=== PATIENT | female | born 1950 | race Caucasian/White ===

== ENCOUNTER 2016-05-23 22:47 | Inpatient (IN) | payer MEDICARE, MEDICAID ==
[~2016-05-23] VITALS: Ht 162.6 cm; Wt 75.0 kg
[~2016-05-23 22:47] MED LIST: GABA300C PO; HYDR25TA PO; LEVO50TA11 PO; OMEP-122 PO; TRAZ-170 PO; VILA20TA PO
--- OUTSIDE RECORDS SUMMARY | 2016-05-23 22:50 | XMS REPORT | Continuity of Care Document ---
Author Author [facility] Organization [facility] Address Unknown Phone Unavailable Care Team Providers Care Hand Stamper Name Role Phone ALLAN BARTHOLOMEW DO Primary Care Physician [phone] Insurance Providers Guarantor Priscilla Henderson Address [address] [place] [address] Email [email or web address] Payer [facility] Community Plan Policy Number [id number] Subscriber's Name Priscilla Henderson Relationship 18 Self Effective Date 16 Expiration Date 16 Payer Medicare Policy Number [id number] Subscriber's Name Priscilla Henderson Relationship 18 Self Chief Complaint and Reason for Visit Chief Complaint Cough,Fever,Flu,URI Reason for Visit Coronavirus infection Problems Active Problems Medical Problem Onset Date Status Abdominal pain Unknown Acute Abrasion of left hand Unknown Acute Abrasion of right hand Unknown Acute Acute urinary retention Unknown Acute Acute urinary retention Unknown Acute Acute urinary retention Unknown Acute Acute urinary retention Unknown Acute Atypical chest pain Unknown Acute Cervical disc disease Unknown Acute Cervical strain Unknown Acute Chest pain Unknown Acute Contusion of left hip Unknown Acute Contusion of left knee Unknown Acute Fall from ground level Unknown Acute Hand sprain Unknown Acute Headache Unknown Acute History of renal anomaly Unknown Acute Insomnia Unknown Acute Insomnia Unknown Acute Leg cramps Unknown Acute Muscle spasm Unknown Acute Nasal contusion Unknown Acute Pectoralis muscle strain Unknown Acute Past Problems Medical Problem Onset Date Coronavirus infection Unknown Knee pain, acute Unknown Medications Current Home Medications Medication Dose Units Route Directions Days Qty Instructions Start Date Gabapentin (Neurontin) 300 Mg Capsule 300 Mg Oral Every Morning 09/21/13 Gabapentin (Neurontin) 300 Mg Capsule 600 Mg Oral Bedtime Hydrochlorothiazide 25 Mg Tablet 25 Mg Oral Daily 09/21/13 Levothyroxine Sodium 50 Mcg Tablet 50 Mcg Oral Before Breakfast 04/06/15 Omeprazole 20 Mg Tablet.dr Unknown Dose Oral Before Breakfast Take 1 tablet, by mouth, one time a day with breakfast. 03/29/16 Trazodone Hcl 50 Mg Tablet 50-100 Mg Oral Bedtime 06/24/14 Vilazodone Hydrochloride (Viibryd) 20 Mg Tablet 20 Mg Oral Daily 04/06/15 Past Home Medications Medication Directions Ordered Status Ascorbic Acid (Vitamin C) 1,000 Mg Tablet, 1000 Mg Oral Daily 06/24/14 Discontinued Cholecalciferol (Vitamin D3) (Vitamin D-3) 2,000 Unit Capsule, 2000 Unit Oral Daily 01/03/14 Discontinued Cyclobenzaprine Hcl 10 Mg Tablet, 10 Mg Oral Three Times A Day as needed for Muscle Spasm 04/06/15 Discontinued Ibuprofen 600 Mg Tablet, 1 Tab Oral Every 8 Hours Prn as needed for Pain 08/26 Discontinued Lisinopril 10 Mg Tablet, 10 Mg Oral Daily 06/24/14 Discontinued Multivitamin (Multi Vitamin Daily) 1 Each Tablet, 1 Tab Oral Daily 01/03/14 Discontinued None , 10/23/09 Discontinued Tramadol Hcl 50 Mg Tablet, 1-2 Tab Oral Q6h/0300,0900,1500,2100 04/06/15 Discontinued Vitamin E Acetate (Vitamin E) 1,000 Unit Capsule, 1000 Unit Oral Daily Discontinued Social History Social History Problem Response Recorded Date/Time Onset Date Status Hx Substance Use N PT DENIES 03/29/2016 11:38pm Not Applicable Not Applicable Hx Alcohol Use N PT DENIES 03/29/2016 11:38pm Not Applicable Not Applicable Tobacco Usage none 09/22/2013 11:45pm Not Applicable Not Applicable Query Response Start Date Stop Date Smoking Status Never smoker Hospital Discharge Instructions No hospital discharge instructions. Plan of Care Discharge Date 03/30/16 1:30am Disposition 01 DISCHARGED HOME, SELF-CARE Condition at Discharge Stable Instructions/Education Provided Cold Symptoms (ED) Prescriptions See Medication Section Referrals ALLAN BRATHOLOMEW DO Order Date: 1 Week Address: [address] [place] [phone] Note: DEMETRIUS OSHEA APRN Address: [address] [place] [phone] Note: Additional Instructions/Education You have a cold. Drink plenty of fluids. Use Nyquil and dayquil for your symptoms. If you really cannot take ibuprofen or tylenol, take benadryl to help with your symptoms. Follow up with your doctor. Care Plan and Goals Physician Care Plan Problem: URI Goal: Follow up with primary care provider Instructions: Take medications and follow care plan as discussed/written Functional Status No functional status results. Allergies, Adverse Reactions, Alerts Allergen Type Severity Reaction Status Last Updated Sulfa (Sulfonamide Antibiotics) Allergy Unknown Active 01/18/16 Iodine Adverse Reaction Unknown Active 01/18/16 Fluoxetine Allergy Unknown Active 01/18/16 Immunizations Query Response on File Recorded Date/Time Hx Influenza Vaccination No 07/18/14 4:35pm Hx Pneumococcal Vaccination No 07/18/14 4:35pm Hx Tetanus, Diptheria, Pertussis NO SKIN DISRUPTIONS 07/18/14 4:35pm Hx Influenza Vaccination No 07/18/14 4:35pm Hx Tetanus Diptheria No 07/18/14 4:35pm Hx Tetanus, Diptheria, Pertussis NO SKIN DISRUPTIONS 07/18/14 4:35pm Hx Tetanus Toxoid Vaccination No 09/11/12 2:01pm DTaP Vaccine History NO 03/29/16 11:38pm Influenza Vaccine Hx NA 03/29/16 11:38pm Tetanus Diptheria Vaccine History NO 03/29/16 11:38pm Tdap Vaccine Hx 201404/06/15 3:46pm Vital Signs Acute Vital Signs Vital Response Date/Time Temperature (Fahrenheit) 99.9 deg F (96.8 - 99.1) 03/30/2016 1:30am Temperature (Calculated Celsius) 37.06200 degrees C (36.0 - 37.3) 03/30/2016 1:30am Pulse Rate (adult) 84 bpm (60 - 100) 03/30/2016 1:30am Respiratory Rate 18 breaths/min (10 - 20) 03/30/2016 1:30am O2 Sat by Pulse Oximetry 93 % (90 - 100) 03/30/2016 1:30am Blood Pressure 119/82 mm Hg 03/30/2016 1:30am Height (Feet) 5 feet 03/29/2016 11:25pm Height (Inches) 4.00 inches 03/29/2016 11:25pm Weight (Kilograms) 77.600 kg 03/29/2016 11:25pm Body Mass Index (BMI) 29.0 03/29/2016 11:25pm Results Laboratory Results Test Name Result Units Flags Reference Collection Date/Time Result Date/ Time Comments Adenovirus (PCR) NEGATIVE NEGATIVE 03/29/2016 11:45pm 03/30/2016 1: 01am Coronavirus Type 229E (PCR) DETECTED A NEGATIVE 03/29/2016 11:45pm 1:01am Coronavirus Type HKU1 (PCR) NEGATIVE NEGATIVE 03/29/2016 11:45pm 1:01am Coronavirus Type NL63 (PCR) NEGATIVE NEGATIVE 03/29/2016 11:45pm 1:01am Coronavirus Type OC43 (PCR) NEGATIVE NEGATIVE 03/29/2016 11:45pm 1:01am Human Metapneumovirus (PCR) NEGATIVE NEGATIVE 03/29/2016 11:45pm 1:01am Enterovirus/Rhinovirus (PCR) NEGATIVE NEGATIVE 03/29/2016 11:45pm 1:01am Influenza Virus Type A (PCR) NEGATIVE NEGATIVE 03/29/2016 11:45pm 1:01am Influenza Virus Type B (PCR) NEGATIVE NEGATIVE 03/29/2016 11:45pm 1:01am Parainfluenza Type 1 (PCR) NEGATIVE NEGATIVE 03/29/2016 11:45pm 03/30 1:01am Parainfluenza Type 2 (PCR) NEGATIVE NEGATIVE 03/29/2016 11:45pm 03/30 1:01am Parainfluenza Type 3 (PCR) NEGATIVE NEGATIVE 03/29/2016 11:45pm 03/30 1:01am Parainfluenza Type 4 (PCR) NEGATIVE NEGATIVE 03/29/2016 11:45pm 03/30 1:01am Respiratory Syncytial Virus (PCR) NEGATIVE NEGATIVE 03/29/2016 11: 45pm 03/30/2016 1:01am Bordetella parapertussis DNA (PCR) NEGATIVE NEGATIVE 03/29/2016 11: 45pm 03/30/2016 1:01am Chlamydia pneumoniae DNA (PCR) NEGATIVE NEGATIVE 03/29/2016 11:45pm 03/30/2016 1:01am Mycoplasma pneumoniae (PCR) NEGATIVE NEGATIVE 03/29/2016 11:45pm 1:01am Procedures No known history of procedures. Encounters Encounter Location Arrival/Admit Date Discharge/Depart Date Attending Provider Departed Emergency Room [facility] 03/29/16 10:47pm 03/30/16 1: 30am GUSTAVO ROWAN DO Registered Clinic [facility] 03/27/16 2:57pm DEMETRIUS OSHEA APRN Departed Emergency Room [facility] 01/18/16 3:01pm 01/18/16 3: 53pm CHAI CHENG APRN Recent Diagnosis
--- OUTSIDE RECORDS SUMMARY | 2016-05-23 22:51 | XMS REPORT | Continuity of Care Document ---
Author Author [facility] Organization [facility] Address Unknown Phone Unavailable Support Name Relationship Address Phone FRANCISCO TERAN MD Caregiver [address] [place] [address] [place] [phone] MARLENY MARTÍNEZ Next Of Kin [address] [place] [address] Insurance Providers Payer Name Policy Number Subscriber Name Relationship Self Pay Priscilla Henderson 18 Self Advance Directives Directive Response Recorded Date/Time Advanced Directives Type None 09/21/13 2:18pm Problems Medical Problems Problem Onset Date Status Acute urinary retention Unknown Active Headache Unknown Active Acute urinary retention Unknown Active Acute urinary retention Unknown Active History of renal anomaly Unknown Active Medications Medication Dose Route Sig Days/Qty Instructions Order Date Discontinued Date Status [None] 10/23/09 09/11/12 Discontinued Oxycodone Hcl/Acetaminophen 1 Tab PO 09/11/12 Active Hydrochlorothiazide 1 Tab PO DAILY 09/21/13 Active Gabapentin 1 Tab PO AM 09/21/13 Active Gabapentin 2 Tab PO BEDTIME 09/21/13 Active Fluoxetine HCl 2 Cap PO DAILY 09/21/13 Active Clonazepam 0.5 Tab PO TWICE A DAY 09/21/13 Active Tamsulosin HCl 1 Cap PO DAILY 10 Qty 09/21/13 Active Phenazopyridine HCl 1 Tab PO THREE TIMES A DAY 15 Qty Take 1 tab, by mouth , 3 times a day AFTER meals. 09/21/13 Active Social History Social History Problem Response Recorded Date/Time Smoking Status Never smoker 09/21/2013 2:18pm Hx Substance Use Y METH-CLEAN FOR 10 MONTHS 09/21/2013 2:18pm Hx Alcohol Use No 09/21/2013 2:18pm Query Response Start Date Stop Date Smoking Status Unknown if ever smoked Hospital Discharge Instructions No hospital discharge instructions. Plan of Care No plan of care. Functional Status Query Response Date Recorded Physical Hygiene Self September 21, 2013 2:18pm Disabilities None September 21, 2013 2:18pm Devices Used None September 21, 2013 2:18pm Dressing Self September 21, 2013 2:18pm Ambulation Self September 21, 2013 2:18pm Diet Self September 21, 2013 2:18pm Mental Status Alert September 21, 2013 6:05pm Disabilities None September 21, 2013 2:18pm Devices Used None September 21, 2013 2:18pm Physical Hygiene Self September 21, 2013 2:18pm Dressing Self September 21, 2013 2:18pm Ambulation Self September 21, 2013 2:18pm Diet Self September 21, 2013 2:18pm Allergies, Adverse Reactions, Alerts Allergen Type Severity Reaction Status Last Updated Sulfa(Sulfonamide Antibiotics) Allergy Unknown Active 11/08/11 Iodine Adverse Reaction Unknown Active 11/08/11 Immunizations Name Given Type Hx Influenza Vaccination No Historical Hx Pneumococcal Vaccination No Historical Hx Tetanus, Diptheria, Pertussis No Historical Hx Influenza Vaccination No Historical Hx Tetanus Diptheria No Historical Hx Tetanus, Diptheria, Pertussis No Historical Hx Tetanus Toxoid Vaccination No Historical Vital Signs Acute Vital Signs Vital Response Date/Time Temperature (Fahrenheit) 96.2 deg F (96.8 - 99.1) Temperature (Calculated Celsius) 35.34504 degrees C (36.0 - 37.3) Pulse Rate (adult) 64 bpm (60 - 100) Respiratory Rate 20 breaths/min (10 - 20) O2 Sat by Pulse Oximetry 96 % (90 - 100) Blood Pressure 159/89 mm Hg Height 5 ft 4 in Weight 145 lb Body Mass Index 24.0 kg/m^2 Results Test Source Date Result Interp. Ref. Range Comments Alanine Aminotransferase (ALT/SGPT) September 21, 2013 2:15pm 65 U/L H 9- 52 Albumin September 21, 2013 2:15pm 4.4 G/DL N 3.5-5.0 Albumin/Globulin Ratio September 21, 2013 2:15pm 1.5 RATIO N 1.1-2.2 Alkaline Phosphatase September 21, 2013 2:15pm 94 U/L N 38-126 Amylase Level November 08, 2011 9:55pm 110 U/L N 30-110 Anion Gap September 21, 2013 2:15pm 13 MEQ/L N 5-15 Aspartate Amino Transf (AST/SGOT) September 21, 2013 2:15pm 44 U/L H 14-36 BUN/Creatinine Ratio September 21, 2013 2:15pm 27 RATIO H 6-26 Band Neutrophils # November 08, 2011 9:55pm 2.4 T/MM3 - Band Neutrophils % November 08, 2011 9:55pm 27.0 % H 0-6 Basophils # (Auto) September 21, 2013 2:15pm 0.0 T/MM3 N 0-0.2 Basophils (%) (Auto) September 21, 2013 2:15pm 0.4 % N 0-2 Blood Urea Nitrogen September 21, 2013 2:15pm 27.0 MG/DL H 7-17 Calcium Level September 21, 2013 2:15pm 10.0 MG/DL N 8.4-10.2 Calculated Osmolality September 21, 2013 2:15pm 272 MOSM/KG N 261-280 Carbon Dioxide Level September 21, 2013 2:15pm 23 MEQ/L N 22-30 Chloride Level September 21, 2013 2:15pm 103 MEQ/L N 98-107 Creatinine September 21, 2013 2:15pm 1.0 MG/DL N 0.7-1.2 Eosinophils # (Auto) September 21, 2013 2:15pm 0.2 T/MM3 N 0-0.5 Eosinophils # (Manual) November 08, 2011 9:55pm 0.1 T/MM3 N 0-0.5 Eosinophils % (Manual) November 08, 2011 9:55pm 1.0 % N 0-4 Eosinophils (%) (Auto) September 21, 2013 2:15pm 2.8 % N 0-4 Globulin September 21, 2013 2:15pm 2.9 G/DL N 2.4-3.6 Glucose Level September 21, 2013 2:15pm 86 MG/DL N 65-110 Hematocrit September 21, 2013 2:15pm 40.7 % N 36-46 Hemoglobin September 21, 2013 2:15pm 14.0 GM/DL N 12-16 Lipase November 08, 2011 9:55pm 45 U/L N 23-300 Lymphocytes # (Auto) September 21, 2013 2:15pm 2.6 T/MM3 N 1-4.8 Lymphocytes # (Manual) November 08, 2011 9:55pm 0.8 T/MM3 L 1-4.8 Lymphocytes % (Manual) November 08, 2011 9:55pm 9.0 % L 23-45 Lymphocytes (%) (Auto) September 21, 2013 2:15pm 36.2 % N 23-45 Mean Corpuscular Hemoglobin September 21, 2013 2:15pm 30.8 UUG N 26-34 Mean Corpuscular Hemoglobin Concent September 21, 2013 2:15pm 34.4 GM/DL N 31-37 Mean Corpuscular Volume September 21, 2013 2:15pm 89.6 UM3 N 80-100 Mean Platelet Volume September 21, 2013 2:15pm 11.2 UM3 N 9.4-12.4 Monocytes # (Auto) September 21, 2013 2:15pm 0.9 T/MM3 H 0-0.8 Monocytes # (Manual) November 08, 2011 9:55pm 0.6 T/MM3 N 0-0.8 Monocytes % (Manual) November 08, 2011 9:55pm 7.0 % N 0-9.0 Monocytes (%) (Auto) September 21, 2013 2:15pm 12.6 % H 0-9.0 Neutrophils # (Auto) September 21, 2013 2:15pm 3.5 T/MM3 N 1.8-7.7 Neutrophils # (Manual) November 08, 2011 9:55pm 5.0 T/MM3 N 1.8-7.7 Neutrophils % (Manual) November 08, 2011 9:55pm 56.0 % N 33-66 Neutrophils (%) (Auto) September 21, 2013 2:15pm 47.9 % N 33-66 Platelet Count September 21, 2013 2:15pm 188 T/MM3 N 130-400 Potassium Level September 21, 2013 2:15pm 3.9 MEQ/L N 3.6-5 RDW Standard Deviation September 21, 2013 2:15pm 39.3 FL N 36.9-50.2 Red Blood Count September 21, 2013 2:15pm 4.54 M/MM3 N 4.00-5.20 Sodium Level September 21, 2013 2:15pm 139 MEQ/L N 134-144 Total Bilirubin September 21, 2013 2:15pm 0.50 MG/DL N 0.20-1.30 Total Protein September 21, 2013 2:15pm 7.3 G/DL N 6.3-8.2 Troponin I September 21, 2013 2:15pm < 0.012 ng/ml 0-0.12 Urine Bilirubin September 21, 2013 2:40pm Negative - Has specimen been collected/obtained? Y Urine Blood September 21, 2013 2:40pm Negative - Has specimen been collected/obtained? Y Urine Collection Type September 21, 2013 2:40pm Straight cath - Has specimen been collected/obtained? Y Urine Color September 21, 2013 2:40pm Yellow - Has specimen been collected/obtained? Y Urine Culture Indicated November 08, 2011 11:08pm Cult reflexed &setup - Has specimen been collected/obtained? Y Urine Glucose (UA) September 21, 2013 2:40pm Negative - Has specimen been collected/obtained? Y Urine Ketones September 21, 2013 2:40pm Negative - Has specimen been collected/obtained? Y Urine Leukocyte Esterase September 21, 2013 2:40pm Negative - Has specimen been collected/obtained? Y Urine Nitrite September 21, 2013 2:40pm Negative - Has specimen been collected/obtained? Y Urine Protein September 21, 2013 2:40pm Negative - Has specimen been collected/obtained? Y Urine RBC November 08, 2011 11:08pm 0-1 /HPF - Has specimen been collected/obtained? Y Urine Specific [place] September 21, 2013 2:40pm <=1.005 L - Has specimen been collected/obtained? Y Urine Squamous Epithelial Cells November 08, 2011 11:08pm Few - Has specimen been collected/obtained? Y Urine Turbidity September 21, 2013 2:40pm Clear - Has specimen been collected/obtained? Y Urine Urobilinogen September 21, 2013 2:40pm 0.2 EU/DL - Has specimen been collected/obtained? Y Urine WBC November 08, 2011 11:08pm 1-3 /HPF - Has specimen been collected/obtained? Y Urine pH September 21, 2013 2:40pm 6.0 - Has specimen been collected/ obtained? Y White Blood Count September 21, 2013 2:15pm 7.2 T/MM3 N 4.5-11.0 Chemistry Specimen Hemolysis September 21, 2013 2:15pm < 15 0-25 0-25: No Hemolysis.26-70: Slight Hemolysis - can falsely elevate K and Urine Protein. 71-285: Moderate Hemolysis - can falsely elevate K, Troponin I, CA 19-9, PTH, CSF GLucose, and Urine Protein, and can falsely decrease Phenytoin. 286-999: Gross Hemolysis - can falsely elevate K, Troponin I, CA 19-9, PTH, CSF Glucose, and Urine Protine, and can falsely decrease Phenytoin. Recommend specimen recollection. Urinalysis Comment September 21, 2013 2:40pm Microscopic not ind. - Has specimen been collected/obtained? Y Lab Scanned Report September 21, 2013 4:47pm REFERENCE LAB [id number] - Turbidity September 21, 2013 2:15pm < 20 0-20 Glomerular Filtration Rate Calc September 21, 2013 2:15pm 56 - Immature Granulocyte # (Auto) September 21, 2013 2:15pm 0.01 T/MM3 N 0.00- 0.03 Immature Granulocyte % (Auto) September 21, 2013 2:15pm 0.1 % N 0.0-0.5 Icterus Index September 21, 2013 2:15pm < 2 0-7 Blood Culture Blood September 11, 2012 2:15pm NO GROWTH AFTER 5 DAYS Urine Culture Urine, Clean Catch Voided November 08, 2011 11:24pm Gram Positive Colin Name: PRISCILLA HENDERSON Unit #: [id number] : 1950 Sex: F Loc / Svc: ED DOS: 09/21/13 Signed Report #: [id number] DIAGNOSTIC IMAGING REPORT TYPE OF EXAM: CT CERVICAL SPINE W/O CONTRAST Dictated By: PA ALMONTE MD INDICATION: ITS.REASON: fall, neck pain CT CERVICAL SPINE W/O CONTRAST: Comparison: Cervical spine radiographs dated April 29, 2013 Technique: Axial CT images through the cervical spine were performed without contrast. Coronal and sagittal reformatted images were also obtained. FINDINGS: The alignment of the cervical spine is stable with anterolisthesis of C4 on C5 and reversal of the normal cervical lordosis. Severe multilevel degenerative changes are present with varying degrees of central canal and neural foraminal stenosis. Severe right- sided neural foraminal stenosis at C3-C4, C4-C5 and bilaterally at C5-C6. Also severe left neural foraminal stenosis at C6-C7. There is no evidence of acute fracture or subluxation of the cervical spine. The atlantoaxial articulation, dens, and upper cervical spine demonstrate no subluxation. The paraspinal soft tissues and spinal canal appear unremarkable. IMPRESSION: No acute traumatic abnormality of the cervical spine. Severe degenerative disk disease as above. . Procedures No known history of procedures. Encounters Encounter Location Date/Time Departed Emergency Room [facility] 09/21/13 2:18pm Recent Diagnosis
--- OUTSIDE RECORDS SUMMARY | 2016-05-23 22:51 | XMS REPORT | Continuity of Care Document ---
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 Procedures Code Description Performed By Performed On 45.16 ESOPHAGOGASTRODUODENOSCOPY [EGD] W/CLOSED BIOPSY Leonel Richmond MD 03/12/2014 45.25 CLOSED ENDOSCOPIC BIOPSY OF LARGE INTESTINE Leonel Richmond MD 03/12/2014 45.42 ENDOSC POLYPECTOMY OF LG INTEST Leonel Richmond MD 03/12/2014 51.98 OTH PERC PROC ZURI TRCT Leonel Richmond MD 05/10/2014 Results Test Result Range CBC - 05/10/14 14:50 MEAN CELL HGB 30.4 pg 27.0-33.0 MEAN CELL HGB CONCENTRATION 33.5 g/dL 32.0-37.0 MEAN CELL VOLUME 90.7 fl 80.0-100.0 RED BLOOD CELL 4.08 m/cumm 4.00-6.00 RED CELL DISTRIBUTION WIDTH 13.2 % 11.0- 15.6 WHITE BLOOD CELL 5.2 k/cumm 5.0-10.0 HEMOGLOBIN 12.4 gm/dL 12.0-16.0 HEMATOCRIT 37.0 % 37.0-47.0 PLATELET COUNT 172 k/cumm 150-400 PROTHROMBIN TIME WITH INR - 05/10/14 14:50 INTERNATIONAL NORMAL RATIO 1.0 0.9-1.1 PROTHROMBIN TIME 10.6 sec 9.3-12.2 POTASSIUM - 05/10/14 14:50 POTASSIUM 3.9 mmol/L 3.5-5.3 CHEM/HEM PROFILE-BEDSIDE - 06/10/14 14:51 POTASSIUM 4.1 mmol/L 3.5-5.3 METHOD Bedside ANION GAP 18 mmol/L 10-20 METHOD Bedside GLUCOSE 89 mg/dL 70-99 BLOOD UREA NITROGEN 11 mg/dL 7-20 CREATININE 0.9 mg/dL 0.6-1.0 HEMOGLOBIN 12.6 gm/dL 12.0-16.0 HEMATOCRIT 37.0 % 37.0-47.0 SODIUM 138 mmol/L 135-148 CHLORIDE 103 mmol/L 98-110 CARBON DIOXIDE 23 mmol/L 21-32 CALCIUM IONIZED 4.7 mg/dL 4.5-5.3 TROPONIN I BEDSIDE - 06/10/14 14:53 METHOD Bedside TROPONIN I < 0.04 ng/mL < 0.11 AMMONIA (NH3) - 06/10/14 15:17 AMMONIA (NH3) 13 mcmol/L 11-32 CBC W/DIFF - 06/10/14 15:17 BASOPHIL # 0.0 k/cumm 0.0-0.2 BASOPHIL % 1 % 0-1 EOSINOPHIL # 0.2 k/cumm 0.1-0.5 EOSINOPHIL % 4 % 2-4 GRANULOCYTE # 2.5 k/cumm 2.0-9.0 GRANULOCYTE % 47 % 50-75 LYMPHOCYTE # 1.9 k/cumm 1.0-4.0 LYMPHOCYTE % 36 % 20-30 MEAN CELL HGB 30.5 pg 27.0-33.0 MEAN CELL HGB CONCENTRATION 34.1 g/dL 32.0-37.0 MEAN CELL VOLUME 89.5 fl 80.0-100.0 MONOCYTE # 0.6 k/cumm 0.1-1.0 MONOCYTE % 12 % 4-6 RED BLOOD CELL 4.19 m/cumm 4.00-6.00 RED CELL DISTRIBUTION WIDTH 12.8 % 11.0- 15.6 WHITE BLOOD CELL 5.3 k/cumm 5.0-10.0 HEMOGLOBIN 12.8 gm/dL 12.0-16.0 HEMATOCRIT 37.5 % 37.0-47.0 PLATELET COUNT 192 k/cumm 150-400 HEPATIC FUNCTION PANEL - 06/10/14 15:17 BILI UNCONJUGATED 0.5 mg/dL 0.0-0.7 AST/SGOT 41 Units/L 10-37 ALT/SGPT 80 Units/L < 66 TOTAL PROTEIN 7.0 gm/dL 6.4-8.2 ALBUMIN 3.7 gm/dL 3.4-5.0 BILI TOTAL 0.6 mg/dL 0.0-1.0 ALKALINE PHOSPHATASE TOTAL 74 IU/L 45- 117 BILI CONJUGATED 0.1 mg/dL 0.0-0.3 LIPASE - 06/10/14 15:17 LIPASE 109 Units/L 73-393 URINALYSIS, ROUTINE - 06/10/14 16:18 UA LEUKOCYTE ESTERASE DIPSTICK 1+ NEGATIVE UA NITRITE DIPSTICK NEGATIVE NEGATIVE UA PROTEIN DIPSTICK NEGATIVE NEGATIVE UA GLUCOSE DIPSTICK NEGATIVE NEGATIVE UA KETONE DIPSTICK NEGATIVE NEGATIVE UA UROBILINOGEN DIPSTICK NORMAL NORMAL UA BILIRUBIN DIPSTICK NEGATIVE NEGATIVE UA BLOOD DIPSTICK NEGATIVE NEGATIVE UA SPECIFIC GRAVITY 1.015 1.015-1.025 UR PH 8.5 5.0-7.0 UA MICROSCOPIC - 06/10/14 16:18 UA AMORPHOUS SEDIMENT 1+ UA EPITHELIAL CELLS 1+ epi/hpf 0 - 1+ UA RBC 0 rbc/hpf 0 - 3 UA VOLUME FOR EXAM 12.0 mL (12mL STD) UA WBC 0-1 wbc/hpf 0 - 5 POTASSIUM - 03/17/15 12:12 POTASSIUM 4.2 mmol/L 3.5-5.3 Encounters ACCT No. Visit Date/Time Discharge Status Pt. Type Provider Facility Loc./Unit Complaint [id number] 04/03/2016 08:00:00 2016 08:00:00 CAN Outpatient Yi WYLIE, [facility] W.RAD [id number] 03/17/2015 12:20:00 2015 15:18:00 DIS Outpatient Yi WYLIE, [facility] W.END [id number] 06/10/2014 14:06:00 2014 18:13:00 DIS [facility] W.SHERI [id number] 06/04/2014 08:12:00 2014 08:12:00 DIS Outpatient Yi WYLIE, [facility] W.CONSTANCE [id number] 05/10/2014 13:48:00 2014 18:24:00 DIS Outpatient Yi WYLIE, [facility] W.END [id number] 03/12/2014 12:02:00 2014 16:08:00 DIS Outpatient Yi WYLIE, [facility] ELISA [id number] 03/11/2014 09:38:00 2014 09:38:00 DIS Outpatient Yi WYLIE, [facility] TRISHA [id number] 07/15/2015 07:45:00 PEN Preadmit Yi WYLIE, [facility] TRISHA [id number] 04/14/2014 17:31:00 Document Registration
--- OUTSIDE RECORDS SUMMARY | 2016-05-23 22:52 | XMS REPORT ---
Author Author Danuta Falcon [facility] Address [address] [id number] Care Team Providers Care [place] Supervisor Name Role Phone EzekielDanuta Unavailable [phone] PROBLEMS Type Condition ICD9-CM Code [id number] Code Onset Dates Condition Status SNOMED Code Problem Colon polyps K63.5 Active 67320112 Problem IBS (irritable bowel syndrome) K58.9 Active 09793470 Problem Adenomatous colon polyp D12.6 Active 143963310 Assessment Rectal prolapse K62.3 10 Apr, 2016 Active 10227952 Problem Anxiety F41.9 Active 87218805 Problem Chronic fatigue R53.82 Active 86981758 Problem Chronic hepatitis C without hepatic coma B18.2 Active 983263639 Problem Rectocele N81.6 Active 354027137 Problem Rectal prolapse K62.3 Active 59066768 Problem Unspecified viral hepatitis C without hepatic coma B19.20 Active 68614914 Problem Abdominal pain R10.9 Active 52708129 Problem Full incontinence of feces R15.9 Active 66318694 Problem Diarrhea, unspecified type R19.7 Active 45724402 ALLERGIES Unknown Allergies SOCIAL HISTORY No smoking Hx information available PLAN OF CARE VITAL SIGNS MEDICATIONS Unknown Medications RESULTS No Results PROCEDURES No Known procedures IMMUNIZATIONS No Known Immunizations
--- OUTSIDE RECORDS SUMMARY | 2016-05-23 22:53 | XMS REPORT | Continuity of Care Document ---
Author Author [facility] Organization [facility] Address Unknown Phone Unavailable Support Name Relationship Address Phone GREY HENDERSON Next Of Kin [address] [address] Unavailable Insurance Providers Payer Name Policy Number Subscriber Name Relationship Self Pay Priscilla Henderson 18 Self Problems No Known Problems or Medical conditions. Family History History Response Recorded Date/Time Hx Abdominal Surgery Y EXPOLARTORY LAP, 09/11/12 1:56pm HX Cerebrovascular Accident N 09/11/12 1:56pm Hx Seizures N 09/11/12 1:56pm Hx Hypertension Y 09/11/12 1:56pm Hx Chronic Obstructive Pulmonary Disease (COPD) N 09/11/12 1:56pm Hx Diabetes N 09/11/12 1:56pm Hx Clotting Problems N 09/11/12 1:56pm Hx MRSA N 09/11/12 1:56pm HX of Genitourinary Surgeries Y PIGGY BACK KIDNEY 09/11/12 1:56pm Social History History Response Recorded Date/Time Smoking Status Unknown if ever smoked 11/08/11 10:05pm Hx Substance Use N 09/11/12 1:56pm Hx Alcohol Use N 09/11/12 1:56pm Allergies, Adverse Reactions, Alerts Allergen Type Severity Reaction Last Updated Sulfa(Sulfonamide Antibiotics) Allergy Unknown 11/08/11 iodine Adverse Reaction Unknown 11/08/11 Medications Medication Dose Units Route Sig Qty Days Oxycodone Hcl/Acetaminophen (Percocet 5-325 Mg Tablet) 1 Tab PO [None] Immunizations Name Given Type Hx Influenza Vaccination N H Hx Pneumococcal Vaccination N H Hx Tetanus, Diptheria, Pertussis N H Response Recorded Date/Time Status not known Unknown Results Test Date Result Interp. Ref. Range Alanine Aminotransferase (ALT/SGPT) September 11, 2012 2:08pm 78 U/L H 9-52 Albumin September 11, 2012 2:08pm 4.6 G/DL N 3.5-5.0 Albumin/Globulin Ratio September 11, 2012 2:08pm 1.4 RATIO N 1.1-2.2 Alkaline Phosphatase September 11, 2012 2:08pm 96 U/L N 38-126 Amylase Level November 08, 2011 9:55pm 110 U/L N 30-110 Anion Gap September 11, 2012 2:08pm 15 MEQ/L N 5-15 Aspartate Amino Transf (AST/SGOT) September 11, 2012 2:08pm 49 U/L H 14-36 BUN/Creatinine Ratio September 11, 2012 2:08pm 26 RATIO N 6-26 Band Neutrophils # November 08, 2011 9:55pm 2.4 T/MM3 - Band Neutrophils % November 08, 2011 9:55pm 27.0 % H 0-6 Basophils # (Auto) September 11, 2012 2:08pm 0.0 T/MM3 N 0-0.2 Basophils (%) (Auto) September 11, 2012 2:08pm 0.2 % N 0-2 Blood Urea Nitrogen September 11, 2012 2:08pm 23.0 MG/DL H 7-17 Calcium Level September 11, 2012 2:08pm 9.4 MG/DL N 8.4-10.2 Calculated Osmolality September 11, 2012 2:08pm 272 MOSM/KG N 261-280 Carbon Dioxide Level September 11, 2012 2:08pm 24 MEQ/L N 22-30 Chloride Level September 11, 2012 2:08pm 100 MEQ/L N 98-107 Creatinine September 11, 2012 2:08pm 0.9 MG/DL N 0.7-1.2 Eosinophils # (Auto) September 11, 2012 2:08pm 0.2 T/MM3 N 0-0.5 Eosinophils # (Manual) November 08, 2011 9:55pm 0.1 T/MM3 N 0-0.5 Eosinophils % (Manual) November 08, 2011 9:55pm 1.0 % N 0-4 Eosinophils (%) (Auto) September 11, 2012 2:08pm 1.5 % N 0-4 Globulin September 11, 2012 2:08pm 3.2 G/DL N 2.4-3.6 Glucose Level September 11, 2012 2:08pm 90 MG/DL N 65-110 Hematocrit September 11, 2012 2:08pm 41.4 % N 36-46 Hemoglobin September 11, 2012 2:08pm 13.9 GM/DL N 12-16 Lipase November 08, 2011 9:55pm 45 U/L N 23-300 Lymphocytes # (Auto) September 11, 2012 2:08pm 1.6 T/MM3 N 1-4.8 Lymphocytes # (Manual) November 08, 2011 9:55pm 0.8 T/MM3 L 1-4.8 Lymphocytes % (Manual) November 08, 2011 9:55pm 9.0 % L 23-45 Lymphocytes (%) (Auto) September 11, 2012 2:08pm 16.8 % L 23-45 Mean Corpuscular Hemoglobin September 11, 2012 2:08pm 30.0 UUG N 26-34 Mean Corpuscular Hemoglobin Concent September 11, 2012 2:08pm 33.6 GM/DL N 31 -37 Mean Corpuscular Volume September 11, 2012 2:08pm 89.2 UM3 N 80-100 Mean Platelet Volume September 11, 2012 2:08pm 10.2 UM3 N 9.4-12.4 Monocytes # (Auto) September 11, 2012 2:08pm 1.3 T/MM3 H 0-0.8 Monocytes # (Manual) November 08, 2011 9:55pm 0.6 T/MM3 N 0-0.8 Monocytes % (Manual) November 08, 2011 9:55pm 7.0 % N 0-9.0 Monocytes (%) (Auto) September 11, 2012 2:08pm 13.4 % H 0-9.0 Neutrophils # (Auto) September 11, 2012 2:08pm 6.6 T/MM3 N 1.8-7.7 Neutrophils # (Manual) November 08, 2011 9:55pm 5.0 T/MM3 N 1.8-7.7 Neutrophils % (Manual) November 08, 2011 9:55pm 56.0 % N 33-66 Neutrophils (%) (Auto) September 11, 2012 2:08pm 67.9 % H 33-66 Platelet Count September 11, 2012 2:08pm 183 T/MM3 N 130-400 Potassium Level September 11, 2012 2:08pm 4.0 MEQ/L N 3.6-5 RDW Standard Deviation September 11, 2012 2:08pm 42.8 FL N 36.9-50.2 Red Blood Count September 11, 2012 2:08pm 4.64 M/MM3 N 4.00-5.20 Sodium Level September 11, 2012 2:08pm 139 MEQ/L N 134-144 Total Bilirubin September 11, 2012 2:08pm 0.90 MG/DL N 0.20-1.30 Total Protein September 11, 2012 2:08pm 7.8 G/DL N 6.3-8.2 Urine Bilirubin November 08, 2011 11:08pm Negative - Urine Blood November 08, 2011 11:08pm Negative - Urine Collection Type November 08, 2011 11:08pm Voided - Urine Color November 08, 2011 11:08pm Yellow - Urine Culture Indicated November 08, 2011 11:08pm Cult reflexed &setup - Urine Glucose (UA) November 08, 2011 11:08pm Negative - Urine Ketones November 08, 2011 11:08pm Trace H - Urine Leukocyte Esterase November 08, 2011 11:08pm Trace H - Urine Nitrite November 08, 2011 11:08pm Negative - Urine Protein November 08, 2011 11:08pm Negative - Urine RBC November 08, 2011 11:08pm 0-1 /HPF - Urine Specific [place] November 08, 2011 11:08pm 1.020 - Urine Squamous Epithelial Cells November 08, 2011 11:08pm Few - Urine Turbidity November 08, 2011 11:08pm Clear - Urine Urobilinogen November 08, 2011 11:08pm Normal EU/DL - Urine WBC November 08, 2011 11:08pm 1-3 /HPF - Urine pH November 08, 2011 11:08pm 5.0 - White Blood Count September 11, 2012 2:08pm 9.7 T/MM3 N 4.5-11.0 Glomerular Filtration Rate Calc September 11, 2012 2:08pm 64 - Immature Granulocyte # (Auto) September 11, 2012 2:08pm 0.02 T/MM3 N 0.00- 0.03 Immature Granulocyte % (Auto) September 11, 2012 2:08pm 0.2 % N 0.0-0.5 Procedures Procedure Code Date HYDRATION IV INFUSION INIT 63498 11/08/11 HY[place]ATE [place] INFUS[place] ADD-ON 72593 11/08/11 THER/PROPH/DIAG IV INF INIT [id number] 09/11/12 Blood Culture 09/11/12 Urine Culture 11/08/11 Encounters Encounter Location Date/Time Departed Emergency Room [facility] 09/11/12 1:27pm
--- OUTSIDE RECORDS SUMMARY | 2016-05-23 22:53 | XMS REPORT | Continuity of Care Document ---
Author Author [facility] Organization [facility] Address Unknown Phone Unavailable Care Team Providers Care Channel Director Name Role Phone BEVERLY DSOUZA MD Primary Care Physician [phone] Insurance Providers Payer Name Policy Number Subscriber Name Relationship [facility] Community Plan [id number] Priscilla Henderson 18 Self Advance Directives Directive Response Recorded Date/Time Advanced Directives Type None 01/03/14 12:42am Problems Medical Problems Problem Onset Date Status Acute urinary retention Unknown Active Headache Unknown Active Acute urinary retention Unknown Active Acute urinary retention Unknown Active History of renal anomaly Unknown Active Acute urinary retention Unknown Active Cervical disc disease Unknown Active Insomnia Unknown Active Leg cramps Unknown Active Insomnia Unknown Active Chest pain Unknown Active Medications Medication Dose Route Sig Days/Qty Instructions Order Date Discontinued Date Status [None] 10/23/09 09/11/12 Discontinued Hydrochlorothiazide 1 Tab PO DAILY 09/21/13 Active Gabapentin 1 Tab PO AM 09/21/13 Active Gabapentin 2 Tab PO BEDTIME 09/21/13 Active Vilazodone Hydrochloride 40 Mg PO DAILY 11/02/13 Active Levothyroxine Sodium 1 Tab PO BEFORE BREAKFAST Once daily before breakfast 11/02/13 Active Multivitamin Unknown Dose PO DAILY 01/03/14 Active Cholecalciferol (Vitamin D3) Unknown Dose PO DAILY 01/03/14 Active Vitamin E (Dl,Tocopheryl Acet) Unknown Dose PO DAILY 01/03/14 Active Temazepam Unknown Dose PO BEDTIME PRN INSOMNIA 01/03/14 Active Social History Social History Problem Response Recorded Date/Time Smoking Status Former smoker 01/03/2014 1:00am Hx Substance Use Y HX DRUG USE 01/03/2014 1:00am Hx Alcohol Use N PT DENIES 01/03/2014 1:00am Query Response Start Date Stop Date Smoking Status Unknown if ever smoked Hospital Discharge Instructions No hospital discharge instructions. Plan of Care No plan of care. Functional Status Query Response Date Recorded Physical Hygiene Self January 03, 2014 1:00am Disabilities Visual January 03, 2014 1:00am Devices Used Glasses January 03, 2014 1:00am Dressing Self January 03, 2014 1:00am Ambulation Self January 03, 2014 1:00am Diet Self January 03, 2014 1:00am Mental Status Alert Oriented January 03, 2014 1:00am Disabilities Visual January 03, 2014 1:00am Devices Used Glasses January 03, 2014 1:00am Physical Hygiene Self January 03, 2014 1:00am Dressing Self January 03, 2014 1:00am Ambulation Self January 03, 2014 1:00am Diet Self January 03, 2014 1:00am Allergies, Adverse Reactions, Alerts Allergen Type Severity Reaction Status Last Updated Sulfa (Sulfonamide Antibiotics) Allergy Unknown Active 01/03/14 Iodine Adverse Reaction Unknown Active 01/03/14 Fluoxetine Allergy Unknown Active 01/03/14 Immunizations Name Given Type Hx Influenza Vaccination No Historical Hx Pneumococcal Vaccination No Historical Hx Tetanus, Diptheria, Pertussis No Historical Hx Influenza Vaccination No Historical Hx Tetanus Diptheria No Historical Hx Tetanus, Diptheria, Pertussis No Historical Hx Tetanus Toxoid Vaccination No Historical Vital Signs Acute Vital Signs Vital Response Date/Time Temperature (Fahrenheit) 97.0 deg F (96.8 - 99.1) Temperature (Calculated Celsius) 36.17462 degrees C (36.0 - 37.3) Pulse Rate (adult) 77 bpm (60 - 100) Respiratory Rate 20 breaths/min (10 - 20) O2 Sat by Pulse Oximetry 97 % (90 - 100) Blood Pressure 134/80 mm Hg Height 5 ft 4 in Weight 144 lb Body Mass Index 24.0 kg/m^2 Results Test Source Date Result Interp. Ref. Range Comments Activated Partial Thromboplast Time January 03, 2014 12:45am 37.0 SEC H 24-36 Alanine Aminotransferase (ALT/SGPT) January 03, 2014 12:45am 66 U/L H 9 -52 Albumin January 03, 2014 12:45am 4.0 G/DL N 3.5-5.0 Albumin/Globulin Ratio January 03, 2014 12:45am 1.5 RATIO N 1.1-2.2 Alkaline Phosphatase January 03, 2014 12:45am 74 U/L N 38-126 Amylase Level November 08, 2011 9:55pm 110 U/L N 30-110 Anion Gap January 03, 2014 12:45am 9 MEQ/L N 5-15 Aspartate Amino Transf (AST/SGOT) January 03, 2014 12:45am 47 U/L H 14- 36 BUN/Creatinine Ratio January 03, 2014 12:45am 16 RATIO N 6-26 Band Neutrophils # November 08, 2011 9:55pm 2.4 T/MM3 - Band Neutrophils % November 08, 2011 9:55pm 27.0 % H 0-6 Basophils # (Auto) January 03, 2014 12:45am 0.0 T/MM3 N 0-0.2 Basophils (%) (Auto) January 03, 2014 12:45am 0.5 % N 0-2 Blood Urea Nitrogen January 03, 2014 12:45am 14.0 MG/DL N 7-17 Calcium Level January 03, 2014 12:45am 9.5 MG/DL N 8.4-10.2 Calculated Osmolality January 03, 2014 12:45am 269 MOSM/KG N 261-280 Carbon Dioxide Level January 03, 2014 12:45am 26 MEQ/L N 22-30 Chemistry Specimen Hemolysis January 03, 2014 12:45am < 15 0-25 0-25 : No Hemolysis.26-70: Slight Hemolysis - can falsely elevate K and Urine Protein. 71-285: Moderate Hemolysis - can falsely elevate K, Troponin I, CA 19-9, PTH, CSF GLucose, and Urine Protein, and can falsely decrease Phenytoin. 286-999: Gross Hemolysis - can falsely elevate K, Troponin I, CA 19-9, PTH, CSF Glucose, and Urine Protine, and can falsely decrease Phenytoin. Recommend specimen recollection. Chloride Level January 03, 2014 12:45am 104 MEQ/L N 98-107 Creatinine January 03, 2014 12:45am 0.9 MG/DL N 0.7-1.2 Eosinophils # (Auto) January 03, 2014 12:45am 0.3 T/MM3 N 0-0.5 Eosinophils # (Manual) November 08, 2011 9:55pm 0.1 T/MM3 N 0-0.5 Eosinophils % (Manual) November 08, 2011 9:55pm 1.0 % N 0-4 Eosinophils (%) (Auto) January 03, 2014 12:45am 5.1 % H 0-4 Globulin January 03, 2014 12:45am 2.7 G/DL N 2.4-3.6 Glomerular Filtration Rate Calc January 03, 2014 12:45am 63 - Glucose Level January 03, 2014 12:45am 91 MG/DL N 65-110 Hematocrit January 03, 2014 12:45am 37.4 % N 36-46 Hemoglobin January 03, 2014 12:45am 12.7 GM/DL N 12-16 Icterus Index January 03, 2014 12:45am < 2 0-7 Immature Granulocyte # (Auto) January 03, 2014 12:45am 0.01 T/MM3 N 0.00-0.03 Immature Granulocyte % (Auto) January 03, 2014 12:45am 0.2 % N 0.0-0.5 Lab Scanned Report November 04, 2013 3:30pm REFERENCE LAB [id number] - Lipase January 03, 2014 12:45am 33 U/L N 23-300 Lymphocytes # (Auto) January 03, 2014 12:45am 2.2 T/MM3 N 1-4.8 Lymphocytes # (Manual) November 08, 2011 9:55pm 0.8 T/MM3 L 1-4.8 Lymphocytes % (Manual) November 08, 2011 9:55pm 9.0 % L 23-45 Lymphocytes (%) (Auto) January 03, 2014 12:45am 36.7 % N 23-45 Mean Corpuscular Hemoglobin January 03, 2014 12:45am 30.5 UUG N 26-34 Mean Corpuscular Hemoglobin Concent January 03, 2014 12:45am 34.0 GM/DL N 31-37 Mean Corpuscular Volume January 03, 2014 12:45am 89.7 UM3 N 80-100 Mean Platelet Volume January 03, 2014 12:45am 10.4 UM3 N 9.4-12.4 Monocytes # (Auto) January 03, 2014 12:45am 0.7 T/MM3 N 0-0.8 Monocytes # (Manual) November 08, 2011 9:55pm 0.6 T/MM3 N 0-0.8 Monocytes % (Manual) November 08, 2011 9:55pm 7.0 % N 0-9.0 Monocytes (%) (Auto) January 03, 2014 12:45am 12.1 % H 0-9.0 LI-Zeg-J-Type Natriuretic Peptide January 03, 2014 12:45am 227 PG/ML H 0-175 Rule in cut points: <50 years old=450; 50-75 years old=900; >75 years old=1800; When utilizing ProBNP rule-in cut points, adjustment for impaired renal function is typically not required. Neutrophils # (Auto) January 03, 2014 12:45am 2.7 T/MM3 N 1.8-7.7 Neutrophils # (Manual) November 08, 2011 9:55pm 5.0 T/MM3 N 1.8-7.7 Neutrophils % (Manual) November 08, 2011 9:55pm 56.0 % N 33-66 Neutrophils (%) (Auto) January 03, 2014 12:45am 45.4 % N 33-66 Platelet Count January 03, 2014 12:45am 174 T/MM3 N 130-400 Potassium Level January 03, 2014 12:45am 3.2 MEQ/L L 3.6-5 Prothromb Time International Ratio January 03, 2014 12:45am 0.95 N 0.81 -1.09 THERAPUTIC RANGE=2.00-3.00 FOR ANTI-THROMBOSIS THERAPUTIC RANGE=2.50- 3.50 FOR IMPLANTED VALVE RDW Standard Deviation January 03, 2014 12:45am 39.4 FL N 36.9-50.2 Red Blood Count January 03, 2014 12:45am 4.17 M/MM3 N 4.00-5.20 Sodium Level January 03, 2014 12:45am 139 MEQ/L N 134-144 Thyroid Stimulating Hormone (TSH) November 02, 2013 3:15am 2.70 MIU/L N 0.47-4.68 Total Bilirubin January 03, 2014 12:45am 0.50 MG/DL N 0.20-1.30 Total Protein January 03, 2014 12:45am 6.7 G/DL N 6.3-8.2 Troponin I January 03, 2014 12:45am < 0.012 ng/ml 0-0.12 Turbidity January 03, 2014 12:45am < 20 0-20 Urinalysis Comment November 02, 2013 3:35am Microscopic not ind. - Has specimen been collected/obtained? Y Urine Bilirubin November 02, 2013 3:35am Negative - Has specimen been collected/obtained? Y Urine Blood November 02, 2013 3:35am Negative - Has specimen been collected/obtained? Y Urine Collection Type November 02, 2013 3:35am Cleancatch-midstream - Has specimen been collected/obtained? Y Urine Color November 02, 2013 3:35am Yellow - Has specimen been collected/obtained? Y Urine Culture Indicated November 08, 2011 11:08pm Cult reflexed &setup - Has specimen been collected/obtained? Y Urine Glucose (UA) November 02, 2013 3:35am Negative - Has specimen been collected/obtained? Y Urine Ketones November 02, 2013 3:35am Negative - Has specimen been collected/obtained? Y Urine Leukocyte Esterase November 02, 2013 3:35am Negative - Has specimen been collected/obtained? Y Urine Nitrite November 02, 2013 3:35am Negative - Has specimen been collected/obtained? Y Urine Protein November 02, 2013 3:35am Negative - Has specimen been collected/obtained? Y Urine RBC November 08, 2011 11:08pm 0-1 /HPF - Has specimen been collected/obtained? Y Urine Specific [place] November 02, 2013 3:35am >=1.030 H - Has specimen been collected/obtained? Y Urine Squamous Epithelial Cells November 08, 2011 11:08pm Few - Has specimen been collected/obtained? Y Urine Turbidity November 02, 2013 3:35am Clear - Has specimen been collected/obtained? Y Urine Urobilinogen November 02, 2013 3:35am 1.0 EU/DL - Has specimen been collected/obtained? Y Urine WBC November 08, 2011 11:08pm 1-3 /HPF - Has specimen been collected/obtained? Y Urine pH November 02, 2013 3:35am 6.0 - Has specimen been collected/ obtained? Y White Blood Count January 03, 2014 12:45am 6.0 T/MM3 N 4.5-11.0 Blood Culture Blood September 11, 2012 2:15pm NO GROWTH AFTER 5 DAYS Urine Culture Urine, Clean Catch Voided November 08, 2011 11:24pm Gram Positive Colin Name: PRISCILLA HENDERSON Unit #: [id number] : 1950 Sex: F Loc / Svc: ED DOS: 11/02/13 Signed Report #: [id number] DIAGNOSTIC IMAGING REPORT TYPE OF EXAM: CHEST 1 VIEW Dictated By: PA ALMONTE MD INDICATION: ITS.REASON: DYSPNEA CHEST 1 VIEW: Comparison: November 08, 2011 FINDINGS: The lungs are clear. There is no abnormal airspace opacity, pleural effusion or pneumothorax identified. The heart size, pulmonary vasculature and mediastinum are within normal limits. IMPRESSION: No acute cardiopulmonary abnormality. . Procedures Procedure Status Date Provider(s) THER/PROPH/DIAG INJ IV PUSH completed 11/02/13 TX/PRO/DX INJ NEW DRUG ADDON completed 11/02/13 TX/PRO/DX INJ NEW DRUG ADDON completed 11/02/13 HYDRATE IV INFUSION ADD-ON completed 11/02/13 HYDRATE IV INFUSION ADD-ON completed 11/02/13 HYDRATE IV INFUSION ADD-ON completed 11/02/13 Encounters Encounter Location Date/Time Registered Emergency Room [facility] 01/03/14 12:39am Departed Emergency Room [facility] 11/02/13 1:15am Recent Diagnosis
--- OUTSIDE RECORDS SUMMARY | 2016-05-23 22:54 | XMS REPORT ---
Author Author Danuta Falcon [facility] Address [address] [id number] Care Team Providers Care Education Rep Name Role Phone Danuta Falcon Unavailable [phone] PROBLEMS Type Condition ICD9-CM Code ROI45-FP Code Onset Dates Condition Status SNOMED Code Problem Chronic fatigue R53.82 Active 35163328 Problem Anxiety F41.9 Active 14225361 Problem Unspecified viral hepatitis C without hepatic coma B19.20 Active 28630987 Problem Abdominal pain R10.9 Active 39858860 Problem Colon polyps K63.5 Active 05613942 Problem Chronic hepatitis C without hepatic coma B18.2 Active 335900706 Problem IBS (irritable bowel syndrome) K58.9 Active 00113120 Problem Adenomatous colon polyp D12.6 Active 542144011 ALLERGIES Unknown Allergies SOCIAL HISTORY No smoking Hx information available PLAN OF CARE VITAL SIGNS MEDICATIONS Unknown Medications RESULTS No Results PROCEDURES No Known procedures IMMUNIZATIONS No Known Immunizations
--- OUTSIDE RECORDS SUMMARY | 2016-05-23 22:54 | XMS REPORT ---
Author Author Danuta Falcon [facility] Address [address] [id number] Care Team Providers Care Shellfish Weigher Name Role Phone Ezekiel Danuta Unavailable [phone] PROBLEMS Type Condition ICD9-CM Code [id number] Code Onset Dates Condition Status SNOMED Code Assessment Chronic hepatitis C without hepatic coma B18.2 Feb, Active 692045605 Problem Chronic fatigue R53.82 Active 85029930 Problem Anxiety F41.9 Active 37888444 Problem Unspecified viral hepatitis C without hepatic coma B19.20 Active 08623465 Problem Abdominal pain R10.9 Active 04014673 Problem Colon polyps K63.5 Active 43696468 Problem Chronic hepatitis C without hepatic coma B18.2 Active 824205779 Problem IBS (irritable bowel syndrome) K58.9 Active 84202671 Problem Adenomatous colon polyp D12.6 Active 239180493 ALLERGIES Unknown Allergies SOCIAL HISTORY No smoking Hx information available PLAN OF CARE Activity Details Pending Test HCV RNA, QUANTITATIVE REAL TIME PCR [id number] ,Reason: VITAL SIGNS MEDICATIONS Medication Instructions Dosage Frequency Start Date End Date Duration Status Ropinirole HCl Active Tramadol HCl 50 MG Orally bedtime 2 tablets Active HydrOXYzine HCl 10 MG Orally twice daily 1 tablet Active Trazodone HCl 100 MG Orally at bedtime Active Gabapentin 300 MG Orally twice daily 1 capsule Active Viibryd 20 MG 1 tablets Active Levothyroxine Sodium 50 MCG Orally Once a day 1 tablet 24h Active Hydrochlorothiazide 25 MG Orally Once a day 1 tablet 24h Active RESULTS No Results PROCEDURES Procedure Date Ordered Related Diagnosis Body Site Billed by outside source Feb 20, 2016 IMMUNIZATIONS No Known Immunizations
--- OUTSIDE RECORDS SUMMARY | 2016-05-23 22:55 | XMS REPORT ---
Author Author Danuta Falcon [facility] Address [address] [id number] Care Team Providers Care Sql Engineer Name Role Phone Danuta Falcon Unavailable [phone] PROBLEMS Type Condition ICD9-CM Code HHE99-AT Code Onset Dates Condition Status SNOMED Code Problem Chronic fatigue R53.82 Active 41762614 Problem Colon polyps K63.5 Active 94558004 Problem Chronic hepatitis C without hepatic coma B18.2 Active 726079504 Problem Anxiety F41.9 Active 51007103 Problem Full incontinence of feces R15.9 Active 73953865 Problem Diarrhea, unspecified type R19.7 Active 12707897 Problem IBS (irritable bowel syndrome) K58.9 Active 04003301 Problem Adenomatous colon polyp D12.6 Active 979930217 Problem Unspecified viral hepatitis C without hepatic coma B19.20 Active 61655942 Problem Abdominal pain R10.9 Active 52597255 ALLERGIES Unknown Allergies SOCIAL HISTORY No smoking Hx information available PLAN OF CARE VITAL SIGNS MEDICATIONS Unknown Medications RESULTS No Results PROCEDURES No Known procedures IMMUNIZATIONS No Known Immunizations
--- OUTSIDE RECORDS SUMMARY | 2016-05-23 22:55 | XMS REPORT ---
Author Author Danuta Falcon [facility] Address [address] [id number] Care Team Providers Care Complex Human Resources Manager Name Role Phone Danuta Falcon Unavailable [phone] PROBLEMS Type Condition ICD9-CM Code EZW05-AE Code Onset Dates Condition Status SNOMED Code Problem Chronic fatigue R53.82 Active 08898823 Problem Colon polyps K63.5 Active 90836984 Problem Chronic hepatitis C without hepatic coma B18.2 Active 938534093 Assessment Chronic hepatitis C without hepatic coma B18.2 Mar, Active 924029308 Problem Anxiety F41.9 Active 85390902 Problem Full incontinence of feces R15.9 Active 26031564 Problem Diarrhea, unspecified type R19.7 Active 99106565 Problem IBS (irritable bowel syndrome) K58.9 Active 36191069 Problem Adenomatous colon polyp D12.6 Active 453907152 Problem Unspecified viral hepatitis C without hepatic coma B19.20 Active 73069839 Problem Abdominal pain R10.9 Active 50944196 ALLERGIES Substance Reaction Event Type Date Status Prozac Unknown Drug Allergy Mar, Active Sulfa Unknown Non Drug Allergy Mar, Active SOCIAL HISTORY No smoking Hx information available PLAN OF CARE Activity Details Pending Test Small Bowel Follow Through After diagnostic testing,Reason: VITAL SIGNS Height 63 in 2016-03-14 Weight 167 lbs 2016-03-14 Heart Rate 78 /min 2016-03-14 Respiratory Rate 16 /min 2016-03-14 BMI 29.58 kg/m2 2016-03-14 Blood pressure systolic 112 mm Hg 2016-03-14 Blood pressure diastolic 70 mm Hg 2016-03-14 MEDICATIONS Medication Instructions Dosage Frequency Start Date End Date Duration Status Gabapentin 300 MG Orally twice daily 1 capsule Active Ropinirole HCl Active Hydrochlorothiazide 25 MG Orally Once a day 1 tablet 24h Active Imodium A-D 2 MG Orally daily 2-6 tablets 24h Active Levothyroxine Sodium 50 MCG Orally Once a day 1 tablet 24h Active Omeprazole 20 MG Orally 15-30 mins prior to evening meal 1 capsule Mar 30 day(s) Active Tramadol HCl 50 MG Orally bedtime 2 tablets Active Viibryd 20 MG 1 tablets Active Trazodone HCl 100 MG Orally at bedtime Active HydrOXYzine HCl 10 MG Orally twice daily 1 tablet Active Atorvastatin Calcium Active RESULTS No Results PROCEDURES Procedure Date Ordered Related Diagnosis Body Site Office Visit, Est Pt., Level 3 Mar 14, 2016 IMMUNIZATIONS No Known Immunizations
[2016-05-23] MEDS ORDERED: NORMAL SALINE 1,000 ML IV ONE (23:13)
[2016-05-23 23:22] LABS: BASOPHILS % (AUTO) 0.5 % (0-2); EOSINOPHILS # (AUTO) 0.3 T/MM3 (0-0.5); EOSINOPHILS % (AUTO) 4.6 % (0-4); HCT - HEMATOCRIT 37.1 % (36-46); IMMATURE GRANULOCYTE # (AUTO) 0.01 T/MM3 (0.00-0.03); IMMATURE GRANULOCYTE % (AUTO) 0.2 % (0.0-0.5); LYMPHOCYTES # (AUTO) 2.5 T/MM3 (1-4.8); LYMPHOCYTES % (AUTO) 38.8 % (23-45); MEAN CORPUSCULAR HGB 30.4 UUG (26-34); MEAN CORPUSCULAR VOLUME 86.9 UM3 (80-100); MEAN PLATELET VOLUME 10.5 UM3 (9.4-12.4); MONOCYTES # (AUTO) 0.5 T/MM3 (0-0.8); MONOCYTES % (AUTO) 8.1 % (0-9.0); NEUTROPHILS % (AUTO) 47.8 % (33-66); RED BLOOD COUNT 4.27 M/MM3 (4.00-5.20); WBC - WHITE BLOOD COUNT 6.3 T/MM3 (4.5-11.0)
[2016-05-23 23:29] LABS: INR 0.96 (0.76-1.04); PROTHROMBIN TIME 10.5 SEC (9.31-12.49)
[2016-05-23 23:33] LABS: ANION GAP 14 MEQ/L (5-15); BUN/CREATININE RATIO 25 RATIO (6-26); CALCIUM 9.5 MG/DL (8.4-10.2); CHLORIDE 102 MEQ/L (98-107); CO2 - CARBON DIOXIDE 26 MEQ/L (22-30); GLOMERULAR FILTRATION RATE 56; GLUCOSE 111 MG/DL (65-110); POTASSIUM 3.2 MEQ/L (3.6-5); SODIUM 142 MEQ/L (134-144)
[2016-05-23 23:42] LABS: PROBNP 48 PG/ML (0-175)
[2016-05-24] VITALS (9 sets, daily range): BP systolic 94–132; BP diastolic 56–83; PULSE 60–67; RESP 18–20; TEMP 96–97.5; O2SAT 92–95; Ht 162.6 cm; Wt 75.0 kg
[2016-05-24] MEDS ORDERED: KETOROLAC 30mg/ml INJECTION IV ONE (00:15)
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
--- OUTSIDE RECORDS SUMMARY | 2016-05-24 00:58 | XMS REPORT | Continuity of Care Document ---
Author Author [facility] Organization [facility] Address Unknown Phone Unavailable Support Name Relationship Address Phone FRANCISCO TERAN MD Caregiver [address] [place] [address] [place] [phone] MARLENY MARTÍNEZ Next Of Kin [address] [place] [address] Insurance Providers Payer Name Policy Number Subscriber [...] F (96.8 - 99.1) Temperature (Calculated Celsius) 35.70528 degrees C (36.0 - 37.3) Pulse Rate [...] Has specimen been collected/obtained? Y Urine Specific [place] September 21, 2013 2:40pm <=1.005 L - [...] Report September 21, 2013 4:47pm REFERENCE LAB [id number] - Turbidity September 21, 2013 2:15pm < [...] Positive Colin Name: PRISCILLA HENDERSON Unit #: [id number] : 1950 Sex: F Loc / Svc: ED DOS: 09/21/13 Signed Report #: [id number] DIAGNOSTIC IMAGING REPORT TYPE OF EXAM: CT [...] Encounters Encounter Location Date/Time Departed Emergency Room [facility] 09/21/13 2:18pm Recent Diagnosis
--- OUTSIDE RECORDS SUMMARY | 2016-05-24 00:58 | XMS REPORT | Continuity of Care Document ---
Author Author [facility] Organization [facility] Address Unknown Phone Unavailable Allergies Active [...] Status Pt. Type Provider Facility Loc./Unit Complaint [id number] 04/03/2016 08:00:00 2016 08:00:00 CAN Outpatient Yi WYLIE, [facility] W.RAD [id number] 03/17/2015 12:20:00 2015 15:18:00 DIS Outpatient Yi WYLIE, [facility] W.END [id number] 06/10/2014 14:06:00 2014 18:13:00 [facility] [id number] 06/04/2014 08:12:00 2014 08:12:00 DIS Outpatient Yi WYLIE, [facility] W.CONSTANCE [id number] 05/10/2014 13:48:00 2014 18:24:00 DIS Outpatient Yi WYLIE, [facility] W.END [id number] 03/12/2014 12:02:00 2014 16:08:00 DIS Outpatient Yi WYLIE, [facility] ELISA [id number] 03/11/2014 09:38:00 2014 09:38:00 DIS Outpatient Yi WYLIE, [facility] TRISHA [id number] 07/15/2015 07:45:00 PEN Preadmit Yi WYLIE, [facility] TRISHA [id number] 04/14/2014 17:31:00 Document Registration
--- OUTSIDE RECORDS SUMMARY | 2016-05-24 00:59 | XMS REPORT | Continuity of Care Document ---
Author Author [facility] Organization [facility] Address Unknown Phone Unavailable Care Team Providers Care Refrigeration Insulator Name Role Phone BEVERLY DSOUZA MD Primary Care Physician [phone] Insurance Providers Payer Name Policy Number Subscriber Name Relationship [facility] Community Plan [id number] Priscilla Henderson 18 Self Advance Directives Directive [...] F (96.8 - 99.1) Temperature (Calculated Celsius) 36.37252 degrees C (36.0 - 37.3) Pulse Rate [...] Report November 04, 2013 3:30pm REFERENCE LAB [id number] - Lipase January 03, 2014 12:45am 33 [...] 03, 2014 12:45am 12.1 % H 0-9.0 LL-Apl-G-Type Natriuretic Peptide January 03, 2014 12:45am 227 [...] Has specimen been collected/obtained? Y Urine Specific [place] November 02, 2013 3:35am >=1.030 H - [...] Positive Colin Name: PRISCILLA HENDERSON Unit #: [id number] : 1950 Sex: F Loc / Svc: ED DOS: 11/02/13 Signed Report #: [id number] DIAGNOSTIC IMAGING REPORT TYPE OF EXAM: CHEST [...] Encounters Encounter Location Date/Time Registered Emergency Room [facility] 01/03/14 12:39am Departed Emergency Room [facility] 11/02/13 1:15am Recent Diagnosis
[2016-05-24] MEDS ORDERED: ISOS30TA6 PO (01:00)
--- OUTSIDE RECORDS SUMMARY | 2016-05-24 01:00 | XMS REPORT | Continuity of Care Document ---
Author Author [facility] Organization [facility] Address Unknown Phone Unavailable Support Name Relationship Address Phone GREY HENDERSON Next Of Kin [address] [place] [address] Unavailable Insurance Providers Payer Name Policy Number [...] 2011 11:08pm 0-1 /HPF - Urine Specific [place] November 08, 2011 11:08pm 1.020 - Urine [...] Procedure Code Date HYDRATION IV INFUSION INIT 77727 11/08/11 HYDRATE IV INFUSION ADD-ON 27173 11/08/11 THER/PROPH/DIAG IV INF INIT 89599 09/11/12 Blood Culture 09/11/12 Urine Culture 11/08/11 Encounters Encounter Location Date/Time Departed Emergency Room [facility] 09/11/12 1:27pm
[2016-05-24] MEDS ORDERED: NITR0.4T39 SL (01:02)
[2016-05-24] MEDS ORDERED: ATOR20TA59 PO (01:02)
[2016-05-24] MEDS ORDERED: NITROGLYCERIN 0.4 MG SUBLINGUAL TABLET SL PRN (01:30)
[2016-05-24] MEDS ORDERED: MORPHINE SULFATE 10 MG SYRINGE IV PRN (01:30)
--- NOTE | 2016-05-24 01:33 | NUR ---
BR PT AMBULATES TO BR AT THIS TIME.
--- OUTSIDE RECORDS SUMMARY | 2016-05-24 01:37 | XMS REPORT | Continuity of Care Document ---
Author Author [facility] Organization [facility] Address Unknown Phone Unavailable Support Name Relationship Address Phone FRANCISCO TERAN MD Caregiver [address] [place] [address] [place] [phone] MARLENY MARTÍNEZ Next Of Kin [address] [place] [address] Insurance Providers Payer Name Policy Number Subscriber [...] F (96.8 - 99.1) Temperature (Calculated Celsius) 35.07733 degrees C (36.0 - 37.3) Pulse Rate [...] Has specimen been collected/obtained? Y Urine Specific [place] September 21, 2013 2:40pm <=1.005 L - [...] Report September 21, 2013 4:47pm REFERENCE LAB [id number] - Turbidity September 21, 2013 2:15pm < [...] Positive Colin Name: PRISCILLA HENDERSON Unit #: [id number] : 1950 Sex: F Loc / Svc: ED DOS: 09/21/13 Signed Report #: [id number] DIAGNOSTIC IMAGING REPORT TYPE OF EXAM: CT [...] Encounters Encounter Location Date/Time Departed Emergency Room [facility] 09/21/13 2:18pm Recent Diagnosis
--- OUTSIDE RECORDS SUMMARY | 2016-05-24 01:37 | XMS REPORT | Continuity of Care Document ---
Author Author [facility] Organization [facility] Address Unknown Phone Unavailable Allergies Active Description [...] Status Pt. Type Provider Facility Loc./Unit Complaint [id number] 04/03/2016 08:00:00 2016 08:00:00 CAN Outpatient Yi WYLIE, [facility] W.RAD [id number] 03/17/2015 12:20:00 2015 15:18:00 DIS Outpatient Yi WYLIE, [facility] W.END [id number] 06/10/2014 14:06:00 2014 18:13:00 [facility] [id number] 06/04/2014 08:12:00 2014 08:12:00 DIS Outpatient Yi WYLIE, [facility] W.CONSTANCE [id number] 05/10/2014 13:48:00 2014 18:24:00 DIS Outpatient Yi WYLIE, [facility] W.END [id number] 03/12/2014 12:02:00 2014 16:08:00 DIS Outpatient Yi WYLIE, [facility] ELISA [id number] 03/11/2014 09:38:00 2014 09:38:00 DIS Outpatient Yi WYLIE, [facility] TRISHA [id number] 07/15/2015 07:45:00 PEN Preadmit Yi WYLIE, [facility] TRISHA [id number] 04/14/2014 17:31:00 Document Registration
--- OUTSIDE RECORDS SUMMARY | 2016-05-24 01:38 | XMS REPORT | Continuity of Care Document ---
Author Author [facility] Organization [facility] Address Unknown Phone Unavailable Care Team Providers Care Car Hostler Name Role Phone BEVERLY DSOUZA MD Primary Care Physician [phone] Insurance Providers Payer Name Policy Number Subscriber Name Relationship [facility] Community Plan [id number] Priscilla Henderson 18 Self Advance Directives Directive [...] F (96.8 - 99.1) Temperature (Calculated Celsius) 36.14071 degrees C (36.0 - 37.3) Pulse Rate [...] Report November 04, 2013 3:30pm REFERENCE LAB [id number] - Lipase January 03, 2014 12:45am 33 [...] 03, 2014 12:45am 12.1 % H 0-9.0 NE-Pww-W-Type Natriuretic Peptide January 03, 2014 12:45am 227 [...] Has specimen been collected/obtained? Y Urine Specific [place] November 02, 2013 3:35am >=1.030 H - [...] Positive Colin Name: PRISCILLA HENDERSON Unit #: [id number] : 1950 Sex: F Loc / Svc: ED DOS: 11/02/13 Signed Report #: [id number] DIAGNOSTIC IMAGING REPORT TYPE OF EXAM: CHEST [...] Encounters Encounter Location Date/Time Registered Emergency Room [facility] 01/03/14 12:39am Departed Emergency Room [facility] 11/02/13 1:15am Recent Diagnosis
--- OUTSIDE RECORDS SUMMARY | 2016-05-24 01:39 | XMS REPORT | Continuity of Care Document ---
Author Author [facility] Organization [facility] Address Unknown Phone Unavailable Support Name Relationship Address Phone GREY HENDERSON Next Of Kin [address] [place] [address] Unavailable Insurance Providers Payer Name Policy Number [...] 2011 11:08pm 0-1 /HPF - Urine Specific [place] November 08, 2011 11:08pm 1.020 - Urine [...] Procedure Code Date HYDRATION IV INFUSION INIT 95586 11/08/11 HYDRATE IV INFUSION ADD-ON 39427 11/08/11 THER/PROPH/DIAG IV INF INIT 59720 09/11/12 Blood Culture 09/11/12 Urine Culture 11/08/11 Encounters Encounter Location Date/Time Departed Emergency Room [facility] 09/11/12 1:27pm
[2016-05-24 01:43] LABS: BLOOD, URINE TRACE-INTACT (NEGATIVE); COLOR,URINE YELLOW (YELLOW); LEUKOCYTE ESTERASE ,URINE 1+ (NEGATIVE); NITRITE,URINE NEGATIVE (NEGATIVE); UROBILINOGEN,URINE 0.2 EU/DL (NORMAL)
[2016-05-24 01:47] LABS: BACTERIA,URINE NONE SEEN (NEGATIVE); RBC,URINE NONE SEEN /HPF (0-3); SQUAMOUS EPITHELIAL CELL,UR 0-5; WBC,URINE 0-1 /HPF (0-5)
--- NOTE | 2016-05-24 02:01 | NUR ---
REPORT GIVEN TO DIANE MOLINA AT THIS TIME.
--- NOTE | 2016-05-24 02:35 | NUR ---
DEPART PT IS TAKEN VIA WHEELCHAIR TO MEDICAL UNIT BY HAYLEE MOLINA. Addendum: 05/24/16 at 0257 by [email or web address] CORRECTED TIME 4725
--- NOTE | 2016-05-24 02:35 | NUR ---
ADMIT ARRIVED TO MEDICAL RM 136 FROM ED VIA WHEELCHAIR.
[2016-05-24] MEDS ORDERED: ROPI0.5T5 (03:19)
--- NOTE | 2016-05-24 04:28 | HPPDOC ---
HPI - Adult Date DATE: 05/24/16 TIME: 04:13 General Date of Admission Date of Admission: May 24, 2016 at 01:28 Chief Complaint: Chest pain History of Present Illness This is a 65 year old patient known to Dr. Stanford for chest pain, HTN, DSLD, hypothyroidism, GERD, insomnia, depression, and chronic pain. She has a positive family history of premature CAD with her Brother who in his 40's of an MS and a nephew who has had a CABG at 38 yrs old. She saw Dr. Stanford recently for her chest pain and it was determined she should be scheduled for a heart cath which was scheduled on 06/04/2016. He also started her on Imdur. She has had a bad headache since starting the Imdur. She attended physical therapy today and rode the bike which is more physical activity than she is used to. Her headache worsened. While riding the bike she became SOB with the exertion, then developed chest pressure which radiated down her left arm and into her upper back. In addition she had nausea, dizziness, palpitations, and felt she had an irregular heart beat. She was given Ntg sl for some relief of her chest pressure but gave her a worse headache. She called Dr. Stanford's nurse who recommended she go to the ER. In ER ECG: SR, RBBB, with a down slope of the T wave in V1 - V4. Trop negative. BNP 48, K+ 3.2, otherwise CBC and BMP unremarkable. VS: BP 116/63, HR 70's and O2 sat 96% on room air. In ER she received Toradol which relieved her symptoms. I was contacted and discussed with Dr. Ibrahim and we decided to admit pt as OBS to monitor and further evaluate her chest pain and determine if we need to perform heart cath sooner. Currently in her room she is sound asleep. First face to face by Dr. Stanford is 05/24/2016. Past Medical History Past Medical History Metabolic: hypertension, hypothyroidism, other ENMT: dental problems Cardiac: CAD, other Female: other Neurological: concussion, neuropathy Musculoskeletal: back pain, neck pain Infectious: hepatitis C Psychological: anxiety, depression, drug abuse Surgical History General: colonoscopy, exploratory laparotomy, other Reproductive/: hysterectomy, tubal ligation Current Medications Home Meds Reported Medications Ropinirole HCl (Ropinirole HCl) 0.5 Mg Tablet, DAILY 05/24/16 Atorvastatin Calcium (Atorvastatin Calcium) 20 Mg Tablet, 1 TAB PO DAILY, #30 05/24/16 Nitroglycerin (Nitroglycerin) 0.4 Mg Tab.subl, 0.4 MG SL PRN Y for CHEST TIGHTNESS, TAB 05/24/16 Isosorbide Mononitrate (Isosorbide Mononitrate ER) 30 Mg Tab.er.24h, 1 TAB PO DAILY, #30 05/24/16 Omeprazole (Omeprazole) 20 Mg Tablet.dr, PO ACB, TAB Take 1 tablet, by mouth, one time a day with breakfast. 03/29/16 Vilazodone Hydrochloride (Viibryd) 20 Mg Tablet, 20 MG PO DAILY 04/06/15 Levothyroxine Sodium (Levothyroxine Sodium) 50 Mcg Tablet, 50 MCG PO ACB 04/06/15 Trazodone HCl (Trazodone HCl) 50 Mg Tablet, 50-100 MG PO HS 06/24/14 Gabapentin (Neurontin) 300 Mg Capsule, 300 MG PO BID 09/21/13 Hydrochlorothiazide (Hydrochlorothiazide) 25 Mg Tablet, 25 MG PO DAILY 09/21/13 Allergies: Coded Allergies: Sulfa (Sulfonamide Antibiotics) (Verified Allergy, Unknown, 01/18/16) fluoxetine (Verified Allergy, Unknown, 01/18/16) iodine (Verified Adverse Reaction, Unknown, 01/18/16) Family History FOUND: COPD, alcohol abuse, bipolar, cancer, cerebral hemorrhage, depression, diabetes, drug abuse, hypertension, migraines, other Vaccines NA NO PT CAN'T REMEMBER WHEN NO NO 2014 Social History Smoking Status: Never smoker Substance Use Type: does not use Alcohol Intake: Does not drink Sexuality: male partner Advance Directives: No DPOA for Healthcare Only Review of Systems Constitutional: REPORTS: dizziness, fatigue, weakness, DENIES: chills, fever, syncope, weight gain, weight loss Eyes Vision: DENIES: blurring, vision changes ENMT Balance: DENIES: vertigo Mouth/Throat: DENIES: sore throat ENMT Teeth: prior orthodontia Cardiovascular chest pain, dyspnea on exertion, DENIES: orthopnea, paroxysmal nocturnal dysp Rhythm/Rate: irregular beat, palpitations Vascular: DENIES: pedal edema Pulmonary Respiratory: dyspnea, DENIES: cough GI Upper Abdomen: heartburn/indigestion, nausea Lower Abdomen: DENIES: blood in stool General: DENIES: dysuria Musculoskeletal General: tenderness, weakness Integumentary Skin: DENIES: sores Nails: DENIES: cupping Neurological General: DENIES: seizures, syncope, vertigo Psychiatric Psychiatric: anxiety, depression, DENIES: memory impairment, suicidal ideation/ attempt Hematologic/Lymphatic DENIES: easy bruising Physical Exam General General Nourishment: well nourished, well developed General Body Habitus: well groomed Vital Signs Vital Signs Date Time Temp Pulse Resp B/P Pulse Ox O2 Delivery O2 Flow Rate FiO2 05/24/16 02:40 60 20 94/56 92 Room Air 05/24/16 02:18 98.1 Height (Feet): 5 Height (Inches): 4.00 Eyes Brief: NOT FOUND: scleral icterus ENMT Brief: FOUND: hearing intact, mucosa moist, normal dentition Neck Brief: FOUND: midline, NOT FOUND: JVD, carotid bruits Respiratory Brief: FOUND: clear all valles, equal bilaterally Cardiovascular (brief) Cardiac Brief: FOUND: regular rate, regular rhythm, NOT FOUND: murmur, pedal edema Capillary Refill: <2 sec, other (pedal pulses +2) Abdomen (brief) Abdominal Brief: FOUND: BS normo active x4, soft, NOT FOUND: tender Musculoskeletal (brief) Musculoskeletal Brief: FOUND: extremities move equally Integumentary (brief) Integumentary Brief: FOUND: dry, pink, warm, NOT FOUND: rash Neurologic (brief) Neurological Brief: FOUND: motor, sensory, NOT FOUND: facial droop, ptosis Neurologic RN Documented GCS Eye Opening: Verbal: Motor: Total: Psychiatric (brief) FOUND: alert, attentive, normal affect, oriented Laboratory Laboratory Tests Test 05/23/16 23:09 05/24/16 01:36 White Blood Count 6.3T/MM3 Red Blood Count 4.27M/MM3 Hemoglobin 13.0GM/DL Hematocrit 37.1% Mean Corpuscular Volume 86.9UM3 Mean Corpuscular Hemoglobin 30.4UUG Mean Corpuscular Hemoglobin Concent 35.0GM/DL RDW Standard Deviation 38.8FL Platelet Count 181T/MM3 Mean Platelet Volume 10.5UM3 Immature Granulocyte % (Auto) 0.2% Neutrophils (%) (Auto) 47.8% Lymphocytes (%) (Auto) 38.8% Monocytes (%) (Auto) 8.1% Eosinophils (%) (Auto) 4.6% Basophils (%) (Auto) 0.5% Absolute Immature Granulocyte (auto 0.01T/MM3 Absolute Neutrophils (auto) 3.0T/MM3 Absolute Lymphocytes (auto) 2.5T/MM3 Absolute Monocytes (auto) 0.5T/MM3 Absolute Eosinophils (auto) 0.3T/MM3 Absolute Basophils (auto) 0.0T/MM3 Prothromb Time International Ratio 0.96 Turbidity < 20 Sodium Level 142MEQ/L Potassium Level 3.2MEQ/L Chloride Level 102MEQ/L Carbon Dioxide Level 26MEQ/L Anion Gap 14MEQ/L Blood Urea Nitrogen 25.0MG/DL Creatinine 1.0MG/DL Glomerular Filtration Rate Calc 56 BUN/Creatinine Ratio 25RATIO Glucose Level 111MG/DL Calculated Osmolality 278MOSM/KG Calcium Level 9.5MG/DL Icterus Index < 2 Troponin I < 0.012ng/ml TI-Cff-D-Type Natriuretic Peptide 48PG/ML Chemistry Specimen Hemolysis < 15 Urine Collection Type Cleancatch-midstream Urine Color Yellow Urine Turbidity Clear Urine pH 5.5 Urine Specific [place] 1.010 Urine Protein Negative Urine Glucose (UA) Negative Urine Ketones Negative Urine Blood Trace-intact Urine Nitrite Negative Urine Bilirubin Negative Urine Urobilinogen 0.2EU/DL Urine Leukocyte Esterase 1+ Urine RBC None seen/HPF Urine WBC 0-1/HPF Urine Squamous Epithelial Cells 0-5 Urine Bacteria None seen Urine Culture Indicated Cult not indicated EKG 05/23/2016 ECG: SR, RBBB, T wave down slopes in V1 - V4. Radiology 05/23/2016 CXR: heart size normal, lungs clear. Assessment & Plan Problems: (1) Chest pain Status: Acute Qualifiers: Chest pain type: unspecified Qualified Codes: R07.9 - Chest pain, unspecified Assessment & Plan: ECG: SR with RBBB, T wave abnormality but no acute ischemia. first trop is negative. No further chest pain. she did have chest tightness with radiation to left arm and back, diaphoresis, and SOB. with exertion, with some relief with Ntg. She is pain free at this time. . she does have a strong family history of premature CAD. She is scheduled for a heart cath on 06/04, Dr. Stanford to determine if she needs to have the heart cath sooner. NPO now except for meds. ASA daily, No BB , cont statin. Echo if not done in office recently. STOP IMDUR. - it gave her a headache. (2) Headache Status: Resolved Assessment & Plan: received Toradol in ER for relief. No Imdur. No Ntg unless necessary. No Mtg paste. (3) HTN (hypertension) Status: Chronic Assessment & Plan: Cont HCTZ. Replace K+ with KCL 20mEq this am. check Mag level. (4) Hyperlipidemia Status: Chronic Assessment & Plan: cont statin. - home dose. (5) Hypothyroid Status: Chronic Assessment & Plan: check TSH, cont levothyroxine per home dose. (6) Palpitations Status: Acute Assessment & Plan: cont telemetry - she has had some PAC's. K+ 3.2 - replace. Check Mag and TSH. May need holter monitor as outpt. (7) GERD (gastroesophageal reflux disease) Status: Chronic Assessment & Plan: cont omeprazole. Tums prn. (8) Depression Status: Chronic Assessment & Plan: cont Viibryd (9) Insomnia Status: Chronic Assessment & Plan: cont Trazodone . - she did not take it tonight and she is sleeping well. DVT Prophylaxis: Lovenox GI Prophylaxis: Other Code Status Full Code Hospital Course Summary Disclaimer The hospital course summary below is not to be considered part of the above Progress Note. ELICIA NEGRO APRN May 24, 2016 04:23
[2016-05-24] MEDS ORDERED: MORPHINE SULFATE 2 MG SYRINGE IV PRN (04:45)
[2016-05-24] MEDS ORDERED: ONDANSETRON 4mg/2ml INJECTION IV PRN (04:45)
[2016-05-24] MEDS ORDERED: DOCUSATE SODIUM 100 MG CAPSULE PO PRN (06:15)
[2016-05-24] MEDS ORDERED: CALCIUM CARBONATE 750mg Chewable TAB PO PRN (06:15)
[2016-05-24] MEDS ORDERED: POLYETHYL.GLYCOL 3350 PACKET 17gm PO PRN (06:15)
[2016-05-24] MEDS ORDERED: OMEPRAZOLE 20 MG CAPSULE PO SCH ×2 (06:30→08:00)
[2016-05-24] MEDS ORDERED: POTASSIUM CHLORIDE 20 MEQ TABLET PO ONE (08:00)
--- NOTE | 2016-05-24 08:06 | DI ---
Indication: ITS.REASON: Chest pain PROCEDURE: CHEST 1 VIEW: Encounter: Initial Comparison: None FINDINGS: The lungs are clear. There is no abnormal airspace opacity, pleural effusion or pneumothorax identified. The heart size, pulmonary vasculature and mediastinum are within normal limits. No significant skeletal abnormality is seen. IMPRESSION: No acute cardiopulmonary abnormality. .
[2016-05-24 08:37] LABS: MAGNESIUM 1.8 MG/DL (1.6-2.3)
[2016-05-24 09:07] LABS: THYROID STIM HORMONE-TSH 2.31 MIU/L (0.47-4.68)
--- NOTE | 2016-05-24 09:26 | NUR ---
CM CM IN TO VISIT PATIENT, SHE DID NOT WAKE UP. WILL CHECK BACK LATER.
[2016-05-24] MEDS: HYDROCHLOROTHIAZIDE 25 MG TABLET PO SCH (11:05)
[2016-05-24] MEDS: LEVOTHYROXINE 50 MCG TABLET PO SCH (11:07)
[2016-05-24] MEDS: OMEPRAZOLE 20 MG CAPSULE PO SCH (11:07)
[2016-05-24] MEDS: ASPIRIN *EC* 81mg TABLET PO SCH (11:08)
[2016-05-24] MEDS: GABAPENTIN 300 MG CAPSULE PO SCH ×2 (11:08→21:55)
--- NOTE | 2016-05-24 11:08 | NUR ---
YAZAN CM IN TO VISIT PATIENT, SHE IS A&O. PATIENT PLANS TO DISCHARGE HOME, LIVES WITH SON AND DENIES ANY DISCHARGE NEEDS. CM CONTACT INFORMATION GIVEN. LEILA IN FORMATION REQUESTED BUT DOESN'T WANT TO READ NOW, INFORMATION LEFT. LACE SCORE IS 3, NO FURTHER FOLLOW UP IS NEEDED. Addendum: 05/24/16 at 1109 by KAMLESH VAZQUEZ RN Amended: Links added.
[2016-05-24] MEDS: VILAZODONE 10 MG PO SCH (11:09)
[2016-05-24] MEDS: ENOXAPARIN 40 MG/0.4 ML INJECTION SQ SCH (11:10)
[2016-05-24] MEDS: NITROGLYCERIN 0.4 MG SUBLINGUAL TABLET SL PRN ×2 (11:21→11:27)
--- NOTE | 2016-05-24 12:00 | NUR ---
CHEST PAIN PATIENT COMPLAINED OF CHEST PRESSURE THIS MORNING. RECEIVED NITRO 0.4MG SL X2. PATIENT EXPRESSED SOME RELIEF. ECG WAS DONE. RESULTS WERE NORMAL. TROPONIN WAS NORMAL FROM EARLIER TODAY WELL.
[2016-05-24 13:30] LABS: ANION GAP 9 MEQ/L (5-15); BUN/CREATININE RATIO 19 RATIO (6-26); CHLORIDE 105 MEQ/L (98-107); CO2 - CARBON DIOXIDE 29 MEQ/L (22-30); CREATININE 1.1 MG/DL (0.7-1.2); GLOMERULAR FILTRATION RATE 50; GLUCOSE 102 MG/DL (65-110); POTASSIUM 3.8 MEQ/L (3.6-5); SODIUM 143 MEQ/L (134-144)
[2016-05-24] MEDS: ACETAMINOPHEN 325 MG TABLET PO PRN (18:20)
--- NOTE | 2016-05-24 19:00 | NUR ---
EOS PATIENT IS NOW AWAKE VISING WITH A FRIEND. DR. MELENDREZ AT BEDSIDE THIS EVENING. NO NEW ORDERS. PLAN IS TO KEEP PATIENT NPO AFTER BREAKFAST TOMORROW FOR A HEART CATH TOMORROW AT 1600HRS.
[2016-05-24] MEDS ORDERED: TRAZODONE 50 MG TABLET PO PRN (21:00)
[2016-05-24] MEDS: ATORVASTATIN 20 MG TABLET PO SCH (21:54)
[2016-05-25] VITALS (33 sets, daily range): BP systolic 100–146; BP diastolic 59–98; PULSE 51–64; RESP 9–27; TEMP 96.8–98.3; O2SAT 91–96
[2016-05-25 05:08] LABS: BASOPHILS % (AUTO) 0.6 % (0-2); EOSINOPHILS # (AUTO) 0.3 T/MM3 (0-0.5); EOSINOPHILS % (AUTO) 6.3 % (0-4); HCT - HEMATOCRIT 38.7 % (36-46); HGB - HEMOGLOBIN 13.2 GM/DL (12-16); LYMPHOCYTES # (AUTO) 2.3 T/MM3 (1-4.8); LYMPHOCYTES % (AUTO) 48.8 % (23-45); MEAN CORPUSCULAR HGB 30.1 UUG (26-34); MEAN CORPUSCULAR HGB CONC(MCHC 34.1 GM/DL (31-37); MEAN CORPUSCULAR VOLUME 88.4 UM3 (80-100); MEAN PLATELET VOLUME 10.7 UM3 (9.4-12.4); MONOCYTES # (AUTO) 0.5 T/MM3 (0-0.8); MONOCYTES % (AUTO) 10.3 % (0-9.0); NEUTROPHILS #(AUTO)-ABSOLUTE 1.6 T/MM3 (1.8-7.7); RED BLOOD COUNT 4.38 M/MM3 (4.00-5.20); WBC - WHITE BLOOD COUNT 4.8 T/MM3 (4.5-11.0)
[2016-05-25 05:20] LABS: ANION GAP 11 MEQ/L (5-15); BUN/CREATININE RATIO 18 RATIO (6-26); CALCIUM 9.5 MG/DL (8.4-10.2); CHLORIDE 104 MEQ/L (98-107); CO2 - CARBON DIOXIDE 29 MEQ/L (22-30); CREATININE 1.1 MG/DL (0.7-1.2); GLOMERULAR FILTRATION RATE 50; GLUCOSE 95 MG/DL (65-110); POTASSIUM 3.4 MEQ/L (3.6-5); SODIUM 144 MEQ/L (134-144)
[2016-05-25] MEDS: LEVOTHYROXINE 50 MCG TABLET PO SCH (05:43)
--- NOTE | 2016-05-25 07:00 | NUR ---
SUMMARY PT SLEPT WELL THIS SHIFT. A&O X 3. DENIED ANY CHEST PAIN. PT AMBULATE SELF TO THE BATHROOM. GAIT STEADY. NO PRN THIS SHIFT. PT WAS EDUCATED ABOUT CALL LIGHT USE AND PT SAFETY. ATE 2 SANDWICHES LAST NIGHT. GOOD URINE OUTPUT.
--- NOTE | 2016-05-25 08:00 | NUR ---
RECEIVED REPORT PATIENT IS ALERT AND ORIENTED. DENIES CHAST PAIN AT THIS TIME. SCHEDULED FOR HEART CATH THIS EVEN. PATIENT WILL REMAIN NPO AFTER BREAKFAST.
[2016-05-25] MEDS: ASPIRIN *EC* 81mg TABLET PO SCH (09:00)
[2016-05-25] MEDS: ENOXAPARIN 40 MG/0.4 ML INJECTION SQ SCH (09:00)
--- NOTE | 2016-05-25 09:00 | NUR ---
CONSENT PATIENT HAS SIGNED A CONSENT FOR HEART CATH TODAY. NURSING QUESTIONS ARE ANSWERED. PATIENT MAY HAVE MORE QUESTIONS FOR THE DOCTOR PRIOR TO THE PROCEDURE.
[2016-05-25] MEDS: OMEPRAZOLE 20 MG CAPSULE PO SCH (09:10)
[2016-05-25] MEDS: GABAPENTIN 300 MG CAPSULE PO SCH ×2 (09:10→20:39)
[2016-05-25] MEDS: VILAZODONE 10 MG PO SCH (09:10)
[2016-05-25] MEDS: HYDROCHLOROTHIAZIDE 25 MG TABLET PO SCH (09:10)
--- NOTE | 2016-05-25 10:10 | NUR ---
CM CM IN TO VISIT WITH PT. SHE IS ALERT AND ORIENTED. SHE PLANS TO RETURN HOME. SHE DENIES DC NEEDS. SHE WOULD LIKE TO COMPLETED DPOA PAPERWORK PRIOR TO HEART CATH. HODA Ace IS CALLED TO ROOM TO NOTARIZE SIGNATURE. PT IS GIVEN UPDATED CM CONTACT INFORMATION. Addendum: 05/25/16 at 1012 by JAMES PHAM RN Amended: Links added.
[2016-05-25] MEDS: ACETAMINOPHEN 325 MG TABLET PO PRN ×2 (10:26→16:32)
[2016-05-25] MEDS ORDERED: HEPARIN 1,000units in NS 500ml BAG IV ONE (13:39)
[2016-05-25] MEDS ORDERED: IOHEXOL 350mg/ml 200ml BOTTLE ONE (13:40)
[2016-05-25] MEDS ORDERED: LIDOCAINE 1% (10mg/ml) 30ml SDV ONE (13:40)
[2016-05-25] MEDS ORDERED: NORMAL SALINE 1,000 ML IV ONE (14:00)
[2016-05-25] MEDS ORDERED: FENTANYL 100mcg/2ml INJECTION ONE (15:05)
[2016-05-25] MEDS ORDERED: MIDAZOLAM 2mg/2ml INJECTION ONE (15:06)
[2016-05-25] MEDS ORDERED: NITROGLYCERIN 50mg/10ml INJECTION IV ONE (15:06)
[2016-05-25] MEDS ORDERED: VERAPAMIL 5mg/2ml INJECTION IV ONE (15:06)
[2016-05-25] MEDS ORDERED: SALINE FLUSH 10ml SYRINGE ONE (15:07)
--- NOTE | 2016-05-25 15:30 | NUR ---
HEART CATH PATIENT HAS LEFT THE FLOOR FRO THE PROCEDURE. PATIENT WILL NOT BE RETURNING TO THIS UNIT. REPORT GIVEN TO THE RECEIVING NURSE AT SURGICAL UNIT AFTER THE PROCEDURE.
[2016-05-25] MEDS ORDERED: MORPHINE SULFATE 4 MG SYRINGE IV PRN ×2 (16:00)
[2016-05-25] MEDS ORDERED: ATROPINE 1 MG/ML VIAL IV PRN (16:00)
[2016-05-25] MEDS ORDERED: LORAZEPAM 2 MG/ML INJECTION IV PRN (16:00)
[2016-05-25] MEDS ORDERED: BISACODYL 10 MG SUPPOSITORY RECTALLY PRN (16:00)
[2016-05-25] MEDS ORDERED: BISACODYL 5 MG E.C. TABLET PO PRN (16:00)
[2016-05-25] MEDS ORDERED: MAG-AL + SIM LIQUID 30 ML UDC PO PRN (16:00)
[2016-05-25] MEDS ORDERED: HYDROCODONE/APAP 5 mg/325 mg TABLET PO PRN (16:00)
[2016-05-25] MEDS ORDERED: ONDANSETRON 4mg/2ml INJECTION IV PRN (16:00)
[2016-05-25] MEDS ORDERED: ACETAMINOPHEN 325 MG TABLET PO PRN (16:00)
[2016-05-25] MEDS ORDERED: LORAZEPAM 0.5 MG TABLET PO PRN (16:00)
[2016-05-25] MEDS ORDERED: NITROGLYCERIN 0.4 MG SUBLINGUAL TABLET SL PRN (16:00)
[2016-05-25] MEDS ORDERED: MILK OF MAGNESIA 30 ML SUSP PO PRN (16:00)
[2016-05-25] MEDS ORDERED: PROMETHAZINE 25 MG INJECTION IV PRN (16:00)
[2016-05-25] MEDS ORDERED: METOCLOPRAMIDE 10mg/2ml INJECTION IV PRN (16:00)
--- NOTE | 2016-05-25 16:10 | NUR ---
FROM CIGARETTE MAKING EXAMINER PATIENT ARRIVED FROM CIGARETTE MAKING EXAMINER AT THIS TIME VIA CART AND CIGARETTE MAKING EXAMINER STAFF. PATIENT ABLE TO TRANSFER SELF TO SURGICAL UNIT BED FROM CART. A/OX3, DROWSY. RATING PAIN AT 8/10 DUE TO A HEADACHE. NO PAIN, S/S OF BLEEDING, EDEMA, HEMATOMA IN RIGHT WRIST. STRONG RADIAL PULSE IN RIGHT WRIST. WILL CONTINUE TO MONITOR.
--- NOTE | 2016-05-25 16:45 | DSPDOC ---
RICKI HERNANDEZ [employer] OPERATOR 05/25/16 1644: General Date Date DATE: 05/25/16 TIME: 16:40 Attending Physician Nathaniel Melendrez MD Admitting Physician Nathaniel Melendrez MD Consulting Physician Admitting Diagnosis CP R/O Discharge Diagnosis unstable angina Procedures Left heart catheterization Laboratory Laboratory Tests Test 05/23/16 23:09 05/24/16 01:36 05/24/16 08:14 05/24/16 13:11 White Blood Count 6.3T/MM3 Red Blood Count 4.27M/MM3 Hemoglobin 13.0GM/DL Hematocrit 37.1% Mean Corpuscular Volume 86.9UM3 Mean Corpuscular Hemoglobin 30.4UUG Mean Corpuscular Hemoglobin Concent 35.0GM/DL RDW Standard Deviation 38.8FL Platelet Count 181T/MM3 Mean Platelet Volume 10.5UM3 Immature Granulocyte % (Auto) 0.2% Neutrophils (%) (Auto) 47.8% Lymphocytes (%) (Auto) 38.8% Monocytes (%) (Auto) 8.1% Eosinophils (%) (Auto) 4.6% Basophils (%) (Auto) 0.5% Absolute Immature Granulocyte (auto 0.01T/MM3 Absolute Neutrophils (auto) 3.0T/MM3 Absolute Lymphocytes (auto) 2.5T/MM3 Absolute Monocytes (auto) 0.5T/MM3 Absolute Eosinophils (auto) 0.3T/MM3 Absolute Basophils (auto) 0.0T/MM3 Prothromb Time International Ratio 0.96 Turbidity < 20 < 20 Sodium Level 142MEQ/L 143MEQ/L Potassium Level 3.2MEQ/L 3.8MEQ/L Chloride Level 102MEQ/L 105MEQ/L Carbon Dioxide Level 26MEQ/L 29MEQ/L Anion Gap 14MEQ/L 9MEQ/L Blood Urea Nitrogen 25.0MG/DL 21.0MG/DL Creatinine 1.0MG/DL 1.1MG/DL Glomerular Filtration Rate Calc 56 50 BUN/Creatinine Ratio 25RATIO 19RATIO Glucose Level 111MG/DL 102MG/DL Calculated Osmolality 278MOSM/KG 278MOSM/KG Calcium Level 9.5MG/DL 9.0MG/DL Icterus Index < 2 < 2 Troponin I < 0.012ng/ml < 0.012ng/ml < 0.012ng/ml FY-Fqd-[id number] Natriuretic Peptide 48PG/ML Chemistry Specimen Hemolysis < 15 < 15 < 15 Urine Collection Type Cleancatch-midstream Urine Color Yellow Urine Turbidity Clear Urine pH 5.5 Urine Specific [place] 1.010 Urine Protein Negative Urine Glucose (UA) Negative Urine Ketones Negative Urine Blood Trace-intact Urine Nitrite Negative Urine Bilirubin Negative Urine Urobilinogen 0.2EU/DL Urine Leukocyte Esterase 1+ Urine RBC None seen/HPF Urine WBC 0-1/HPF Urine Squamous Epithelial Cells 0-5 Urine Bacteria None seen Urine Culture Indicated Cult not indicated Magnesium Level 1.8MG/DL Thyroid Stimulating Hormone (TSH) 2.31MIU/L Test 05/24/16 15:44 05/24/16 19:54 05/25/16 04:13 Troponin I < 0.012ng/ml < 0.012ng/ml Chemistry Specimen Hemolysis < 15 < 15 < 15 White Blood Count 4.8T/MM3 Red Blood Count 4.38M/MM3 Hemoglobin 13.2GM/DL Hematocrit 38.7% Mean Corpuscular Volume 88.4UM3 Mean Corpuscular Hemoglobin 30.1UUG Mean Corpuscular Hemoglobin Concent 34.1GM/DL RDW Standard Deviation 39.9FL Platelet Count 164T/MM3 Mean Platelet Volume 10.7UM3 Immature Granulocyte % (Auto) 0.0% Neutrophils (%) (Auto) 34.0% Lymphocytes (%) (Auto) 48.8% Monocytes (%) (Auto) 10.3% Eosinophils (%) (Auto) 6.3% Basophils (%) (Auto) 0.6% Absolute Immature Granulocyte (auto 0.00T/MM3 Absolute Neutrophils (auto) 1.6T/MM3 Absolute Lymphocytes (auto) 2.3T/MM3 Absolute Monocytes (auto) 0.5T/MM3 Absolute Eosinophils (auto) 0.3T/MM3 Absolute Basophils (auto) 0.0T/MM3 Turbidity < 20 Sodium Level 144MEQ/L Potassium Level 3.4MEQ/L Chloride Level 104MEQ/L Carbon Dioxide Level 29MEQ/L Anion Gap 11MEQ/L Blood Urea Nitrogen 20.0MG/DL Creatinine 1.1MG/DL Glomerular Filtration Rate Calc 50 BUN/Creatinine Ratio 18RATIO Glucose Level 95MG/DL Calculated Osmolality 280MOSM/KG Calcium Level 9.5MG/DL Icterus Index < 2 Laboratory Tests Test 05/24/16 08:14 05/24/16 13:11 05/24/16 15:44 05/24/16 19:54 Magnesium Level 1.8MG/DL (1.6-2.3) Troponin I < 0.012ng/ml (0-0.12) < 0.012ng/ml (0-0.12) < 0.012ng/ml (0-0.12) < 0.012ng/ml (0-0.12) Thyroid Stimulating Hormone (TSH) 2.31MIU/L (0.47-4.68) Chemistry Specimen Hemolysis < 15 (0-25) < 15 (0-25) < 15 (0-25) < 15 (0-25) Turbidity < 20 (0-20) Sodium Level 143MEQ/L (134-144) Potassium Level 3.8MEQ/L (3.6-5) Chloride Level 105MEQ/L (98-107) Carbon Dioxide Level 29MEQ/L (22-30) Anion Gap 9MEQ/L (5-15) Blood Urea Nitrogen 21.0MG/DL (7-17) Creatinine 1.1MG/DL (0.7-1.2) Glomerular Filtration Rate Calc 50 BUN/Creatinine Ratio 19RATIO (6-26) Glucose Level 102MG/DL (65-110) Calculated Osmolality 278MOSM/KG (261-280) Calcium Level 9.0MG/DL (8.4-10.2) Icterus Index < 2 (0-7) Test 05/25/16 04:13 White Blood Count 4.8T/MM3 (4.5-11.0) Red Blood Count 4.38M/MM3 (4.00-5.20) Hemoglobin 13.2GM/DL (12-16) Hematocrit 38.7% (36-46) Mean Corpuscular Volume 88.4UM3 (80-100) Mean Corpuscular Hemoglobin 30.1UUG (26-34) Mean Corpuscular Hemoglobin Concent 34.1GM/DL (31-37) RDW Standard Deviation 39.9FL (36.9-50.2) Platelet Count 164T/MM3 (130-400) Mean Platelet Volume 10.7UM3 (9.4-12.4) Immature Granulocyte % (Auto) 0.0% (0.0-0.5) Neutrophils (%) (Auto) 34.0% (33-66) Lymphocytes (%) (Auto) 48.8% (23-45) Monocytes (%) (Auto) 10.3% (0-9.0) Eosinophils (%) (Auto) 6.3% (0-4) Basophils (%) (Auto) 0.6% (0-2) Absolute Immature Granulocyte (auto 0.00T/MM3 (0.00-0.03) Absolute Neutrophils (auto) 1.6T/MM3 (1.8-7.7) Absolute Lymphocytes (auto) 2.3T/MM3 (1-4.8) Absolute Monocytes (auto) 0.5T/MM3 (0-0.8) Absolute Eosinophils (auto) 0.3T/MM3 (0-0.5) Absolute Basophils (auto) 0.0T/MM3 (0-0.2) Turbidity < 20 (0-20) Sodium Level 144MEQ/L (134-144) Potassium Level 3.4MEQ/L (3.6-5) Chloride Level 104MEQ/L (98-107) Carbon Dioxide Level 29MEQ/L (22-30) Anion Gap 11MEQ/L (5-15) Blood Urea Nitrogen 20.0MG/DL (7-17) Creatinine 1.1MG/DL (0.7-1.2) Glomerular Filtration Rate Calc 50 BUN/Creatinine Ratio 18RATIO (6-26) Glucose Level 95MG/DL (65-110) Calculated Osmolality 280MOSM/KG (261-280) Calcium Level 9.5MG/DL (8.4-10.2) Icterus Index < 2 (0-7) Chemistry Specimen Hemolysis < 15 (0-25) Radiology DATE OF EXAM: 05/23/16 ORDERING DOCTOR: GUSTAVO ROWAN DO TYPE OF EXAM: CHEST 1 VIEW REASON FOR EXAM: CP Indication: ITS.REASON: Chest pain PROCEDURE: CHEST 1 VIEW: Encounter: Initial Comparison: None FINDINGS: The lungs are clear. There is no abnormal airspace opacity, pleural effusion or pneumothorax identified. The heart size, pulmonary vasculature and mediastinum are within normal limits. No significant skeletal abnormality is seen. IMPRESSION: No acute cardiopulmonary abnormality. History of Present Illness This is a 65 year old patient known to Dr. Melendrez for chest pain, HTN, DSLD, hypothyroidism, GERD, insomnia, depression, and chronic pain. She has a positive family history of premature CAD with her Brother who in his 40's of an DC and a nephew who has had a CABG at 38 yrs old. She saw Dr. Melendrez recently for her chest pain and it was determined she should be scheduled for a heart cath which was scheduled on 06/04/2016. He also started her on Imdur. She has had a bad headache since starting the Imdur. She attended physical therapy today and rode the bike which is more physical activity than she is used to. Her headache worsened. While riding the bike she became SOB with the exertion, then developed chest pressure which radiated down her left arm and into her upper back. In addition she had nausea, dizziness, palpitations, and felt she had an irregular heart beat. She was given Ntg sl for some relief of her chest pressure but gave her a worse headache. She called Dr. Melendrez's nurse who recommended she go to the ER. In ER ECG: SR, RBBB, with a down slope of the T wave in V1 - V4. Trop negative. BNP 48, K+ 3.2, otherwise CBC and BMP unremarkable. VS: BP 116/63, HR 70's and O2 sat 96% on room air. In ER she received Toradol which relieved her symptoms. I was contacted and discussed with Dr. Rowan and we decided to admit pt as OBS to monitor and further evaluate her chest pain and determine if we need to perform heart cath sooner. Currently in her room she is sound asleep. First face to face by Dr. Melendrez is 05/24/2016. Objective Vital Signs Vital signs Vital Signs 05/25/16 05/25/16 08:41 12:17 Temp 98.3 Pulse 60 62 Resp 16 18 B/P 115/69 Pulse Ox 94 O2 Delivery Room Air Height (Feet): 5 Height (Inches): 4.00 Weight (Kilograms): 75.000 General Alert, Orientated x 3 ENMT (Brief) mucosa moist Neck (Brief) NOT FOUND: JVD, carotid bruits Respiratory (Brief) clear all valles, equal bilaterally, NOT FOUND: rales, wheezes Cardiovascular (Brief) regular rate, regular rhythm, NOT FOUND: click, gallop, murmur, pedal edema, rub Abdomen (Brief) BS normo active x4, soft, NOT FOUND: tender Integumentary (Brief) dry, pink, warm Psychiatric (Brief) alert, oriented Laboratory Laboratory Laboratory Tests 05/25/16 04:13 Laboratory Tests 05/25/16 04:13 EKG SR, RBBB Medications Current Medications Ketorolac Tromethamine (Toradol) 30 mg O ONCE IV Last administered on 00:55; Start 05/24/16 at 00:15; Stop 05/24/16 at 00:16; Status DC Enoxaparin Sodium (Lovenox) 40 mg DAILY SQ Last administered on 05/24/16 11:10 ; Start 05/24/16 at 09:00; Status Future Hold Aspirin (Ecotrin) 81 mg DAILY PO Last administered on 05/24/16 11:08; Start at 09:00; Status Future Hold Atorvastatin Calcium (LIPITOR 20 mg) 20 mg HS PO Last administered on 21:54; Start 05/24/16 at 22:00 Gabapentin (Neurontin) 300 mg BID PO Last administered on 05/25/16 09:10; Start 05/24/16 at 09:00 Hydrochlorothiazide (Hydrodiuril) 25 mg WB PO Last administered on 05/25/16 09 :10; Start 05/24/16 at 08:00 Levothyroxine Sodium (Synthroid) 50 mcg ACB PO Last administered on 05/25/16 05:43; Start 05/24/16 at 08:00 Omeprazole (Prilosec) 40 mg ACB PO ; Start 05/24/16 at 08:00; Stop 05/24/16 at 08:00; Status DC Trazodone HCl (Desyrel) 1-2 TABS HS PRN PO INSOMNIA; Start 05/24/16 at 21:00; Stop 05/24/16 at 21:00; Status DC Vilazodone HCl (Viibryd) 20 mg DAILY PO Last administered on 05/25/16 09:10; Start 05/24/16 at 09:00 Potassium Chloride (Kdur) 20 meq O ONCE PO Last administered on 4/13/17at 11: 06; Start 05/24/16 at 08:00; Stop 05/24/16 at 08:01; Status DC Calcium Carbonate (TUMS Extra Strength) 750 mg PRN PRN PO ; Start 05/24/16 at 06:15 Docusate Sodium (Colace) 100 mg DAILY PRN PO ; Start 05/24/16 at 06:15 Polyethylene Glycol (Miralax) 17 g DAILY PRN PO ; Start 05/24/16 at 06:15 Heparin Sodium/ Sodium Chloride (HEPARIN 1,000units in NS 500ml) 1,000 unit STK- MED ONCE IV ; Start 05/25/16 at 13:39; Stop 05/25/16 at 13:40; Status DC Lidocaine HCl (Xylocaine 1%) 300 mg STK-MED ONCE .ROUTE ; Start 05/25/16 at 13: 40; Stop 05/25/16 at 13:41; Status DC Iohexol 1 bottle 1 bottle STK-MED ONCE .ROUTE ; Start 05/25/16 at 13:40; Stop at 13:41; Status DC Sodium Chloride (Normal Saline IV) 1,000 ml @ 75 mls/hr [id number] ONCE IV Last administered on 05/25/16t 14:10; Start 05/25/16 at 14:00; Stop 05/26/16 at 03:19 Fentanyl (Fentanyl) 100 mcg STK-MED ONCE .ROUTE ; Start 05/25/16 at 15:05; Stop 05/25/16 at 15:06; Status DC Midazolam HCl (Versed) 2 mg STK-MED ONCE .ROUTE ; Start 05/25/16 at 15:06; Stop 05/25/16 at 15:07; Status DC Verapamil HCl (Verapamil) 5 mg STK-MED ONCE IV ; Start 05/25/16 at 15:06; Stop 05/25/16 at 15:07; Status DC Nitroglycerin (Nitroglycerin) 50 mg STK-MED ONCE IV ; Start 05/25/16 at 15:06; Stop 05/25/16 at 15:07; Status DC Heparin Sodium (Porcine) (Heparin Bolus) 10,000 unit STK-MED ONCE IV ; Start at 15:06; Stop 05/25/16 at 15:07; Status DC Sodium Chloride (Iv Flush) 10 ml STK-MED ONCE .ROUTE ; Start 05/25/16 at 15:07; Stop 05/25/16 at 15:08; Status DC Atropine Sulfate (ATROPINE 1mg INJ) 0.5 mg Q5M PRN IV pulse < 40 bmp AND symptomatic; Start 05/25/16 at 16:00 Acetaminophen (Tylenol Regular Strength) 325-650 mg Q5H PRN PO PAIN; Start at 16:00 Morphine Sulfate (Morphine) 2-4 mg Q5MIN PRN IV ANGINA; Start 05/25/16 at 16:00 Acetaminophen/ Hydrocodone Bitart ([place] 5/325) 1-2 tabs Q5H PRN PO PAIN; Start 05/25/16 at 16:00 Promethazine HCl (Phenergan) 12.5-25 mg Q6H PRN IV NAUSEA &/OR VOMITING; Start 05/25/16 at 16:00 Nitroglycerin (Nitrostat) 0.4 mg Q5MIN PRN SL ANGINA; Start 05/25/16 at 16:00 Magnesium Hydroxide (Mom) 30 ml DAILY PRN PO CONSTIPATION; Start 05/25/16 at 16 :00 Bisacodyl (Dulcolax) 5-10 mg DAILY PRN PO CONSTIPATION; Start 05/25/16 at 16:00 Al Hydroxide/Mg Hydroxide (Maalox) 30 ml Q3H PRN PO INDIGESTION; Start at 16:00 Lorazepam (Ativan) 0.5-1 mg Q4H PRN IV ANXIETY; Start 05/25/16 at 16:00 Metoclopramide HCl (REGLAN Inj) 5-10 mg Q6H PRN IV NAUSEA &/OR VOMITING; Start 05/25/16 at 16:00 Ondansetron HCl (Zofran) 4 mg Q6H PRN IV NAUSEA &/OR VOMITING; Start 05/25/16 at 16:00 Hospital Course Riley was admitted to rule out DC. She was taken to the lab analyst today for a left heart catheterization and was found to have mild CAD. Problems: (1) Chest pain Status: Acute (2) Headache Status: Resolved (3) HTN (hypertension) Status: Chronic (4) Hyperlipidemia Status: Chronic (5) Hypothyroid Status: Chronic (6) Palpitations Status: Acute (7) GERD (gastroesophageal reflux disease) Status: Chronic (8) Depression Status: Chronic (9) Insomnia Status: Chronic GI Prophylaxis: Other Code Status Full Code Home Meds Reported Medications Ropinirole HCl (Ropinirole HCl) 0.5 Mg Tablet, DAILY 05/24/16 Atorvastatin Calcium (Atorvastatin Calcium) 20 Mg Tablet, 1 TAB PO DAILY, #30 05/24/16 Nitroglycerin (Nitroglycerin) 0.4 Mg Tab.subl, 0.4 MG SL PRN Y for CHEST TIGHTNESS, TAB 05/24/16 Isosorbide Mononitrate (Isosorbide Mononitrate ER) 30 Mg Tab.er.24h, 1 TAB PO DAILY, #30 05/24/16 Omeprazole (Omeprazole) 20 Mg Tablet.dr, PO ACB, TAB Take 1 tablet, by mouth, one time a day with breakfast. 03/29/16 Vilazodone Hydrochloride (Viibryd) 20 Mg Tablet, 20 MG PO DAILY 04/06/15 Levothyroxine Sodium (Levothyroxine Sodium) 50 Mcg Tablet, 50 MCG PO ACB 04/06/15 Trazodone HCl (Trazodone HCl) 50 Mg Tablet, 50-100 MG PO HS 06/24/14 Gabapentin (Neurontin) 300 Mg Capsule, 300 MG PO BID 09/21/13 Hydrochlorothiazide (Hydrochlorothiazide) 25 Mg Tablet, 25 MG PO DAILY 09/21/13 Discharge Disposition Discharge to home in good and stable condition in the care of herself. NATHANIEL MELENDREZ MD 06/01/16 7418: Hospital Course Home Meds Reported Medications Ropinirole HCl (Ropinirole HCl) 0.5 Mg Tablet, DAILY 05/24/16 Atorvastatin Calcium (Atorvastatin Calcium) 20 Mg Tablet, 1 TAB PO DAILY, #30 05/24/16 Nitroglycerin (Nitroglycerin) 0.4 Mg Tab.subl, 0.4 MG SL PRN Y for CHEST TIGHTNESS, TAB 05/24/16 Isosorbide Mononitrate (Isosorbide Mononitrate ER) 30 Mg Tab.er.24h, 1 TAB PO DAILY, #30 05/24/16 Omeprazole (Omeprazole) 20 Mg Tablet.dr, PO ACB, TAB Take 1 tablet, by mouth, one time a day with breakfast. 03/29/16 Vilazodone Hydrochloride (Viibryd) 20 Mg Tablet, 20 MG PO DAILY 04/06/15 Levothyroxine Sodium (Levothyroxine Sodium) 50 Mcg Tablet, 50 MCG PO ACB 04/06/15 Trazodone HCl (Trazodone HCl) 50 Mg Tablet, 50-100 MG PO HS 06/24/14 Gabapentin (Neurontin) 300 Mg Capsule, 300 MG PO BID 09/21/13 Hydrochlorothiazide (Hydrochlorothiazide) 25 Mg Tablet, 25 MG PO DAILY 09/21/13 Discharge Disposition After examining the patient I agree with the above assessment. I am involved in the formulation of the patient's plan of care. RICKI HERNANDEZ APRN May 25, 2016 16:44 NATHANIEL MELENDREZ MD Jun 01, 2016 13:28
--- NOTE | 2016-05-25 17:30 | NUR ---
TR BAND BLEED AT 1730, THIS RN ATTEMPTED TO REMOVE 2 CC OF AIR FROM TR BAND. PATIENT IMMEDIATELY STARTED BLEEDING FROM RIGHT WRIST. TR BAND REINFLATED TO 14 CC OF AIR. 5 MINUTES OF PRESSURE APPLIED. BLEEDING CEASED AFTER PRESSURE. AIR WILL NOT BE ATTEMPTED TO BE REMOVED UNTIL 1830. WILL CONTINUE TO MONITOR.
[2016-05-25] MEDS: ATORVASTATIN 20 MG TABLET PO SCH (20:39)
--- NOTE | 2016-05-25 20:54 | CVPROF ---
DATE OF PROCEDURE 05/25/2016 HISTORY The patient is a 65-year-old lady with chest pressure, tightness, and heaviness , who was admitted with unstable angina and was referred for further evaluation by cardiac catheterization and possible intervention. Informed consent was obtained after explaining the procedure and the potential risks to the patient who agreed to proceed with the procedure. PROCEDURE 1. Left heart catheterization. 2. Coronary angiography. 3. Left ventriculography. TECHNIQUE Patient was prepped and draped in the usual sterile techniques. Conscious sedation was performed using Versed and fentanyl. Then, 1% lidocaine was used for local anesthesia. Using modified Seldinger technique, arterial access was obtained into the right radial artery with placement of a 6-Mong[place]ian arterial sheath. Left ventriculography in single-plane MURRAY shallow projection showed normal LV systolic function with ejection fraction of about 65% with no mitral regurgitation or gradient across the aortic valve. LVEDP was about 13. CORONARY ANGIOGRAPHY Left main was free of significant lesions and bifurcated into left anterior descending and left circumflex arteries. Left anterior descending artery was a medium-caliber vessel, which was significantly tortuous with no significant lesions in LAD or diagonals. Left circumflex artery was dominant and [id number] caliber vessel with minor irregularities with no significant lesions. Right coronary artery was small and nondominant with no significant lesions. Patient tolerated the procedure well with no complications. IMPRESSION 1. No significant coronary obstructive disease. 2. Normal LV systolic function with ejection fraction of about 65%. PLAN Medical management. Patient may require noncardiac chest pain workup as per primary care physician. MIRELA
--- NOTE | 2016-05-25 23:10 | NUR ---
DISCHARGE SUMMARY PT VITAL SIGNS ARE STABLE ON ROOM AIR, DENIES C/P,N/V AND SOA. AT BEDSIDE DURING DISCHARGE TEACHING. REMAINDER OR TR BAND REMOVED WITHOUT BLEEDING. THE FOLLOWING DISCHARGE INSTRUCTIONS WERE GIVEN: S&SX TO REPORT REGARDING TR BAND SITE, FOLLOW UP APT WITH DR MELENDREZ'S OFFICE, LIMITATIONS REGARDING LIFTING AND REST. IV SITE REMOVED AND CATHETER TIP IS INTACT, NO BLEEDING OR PROBLEMS AT INSERTION SITE. ALL PTS BELONGINGS GATHERED AND SENT WITH PT . PT TAKEN TO ER ENTRANCE VIA WHEELCHAIR.
== END 2016-05-25 23:10 | disposition home or self-care (01) | DRG 287 ==
LOC: ED 22:47 → EDHOLD 05-24 01:28 → MED 05-24 02:35 → OBSVTOIN 05-25 15:45 → SRG 05-25 16:01
PROVIDERS: ADMIT Internal Medicine Cardiovascular Disease; ATTEND Internal Medicine Cardiovascular Disease
PROC: 4A023N7 Measurement of Cardiac Sampling and Pressure, Left Heart, Percutaneous Approach (ICD-10-PCS; principal; 2016-05-25)
PROC: B2111ZZ Fluoroscopy of Multiple Coronary Arteries using Low Osmolar Contrast (ICD-10-PCS; 2016-05-25)
PROC: B2151ZZ Fluoroscopy of Left Heart using Low Osmolar Contrast (ICD-10-PCS; 2016-05-25)
DX: I20.0 Unstable angina (principal); I10 Essential (primary) hypertension; E03.9 Hypothyroidism, unspecified; E78.5 Hyperlipidemia, unspecified; K21.9 Gastro-esophageal reflux disease without esophagitis; I45.10 Unspecified right bundle-branch block; R51 Headache; F32.9 Major depressive disorder, single episode, unspecified; G47.00 Insomnia, unspecified; Z79.899 Other long term (current) drug therapy
CPT/HCPCS: 36415; 80048; 81001; 83735; 83880; 84443; 84484; 85025; 85610; 93005; 93458; 96361; 96374; 99218

== ENCOUNTER 2016-09-25 10:50 | Inpatient (IN) ==
[2016-09-24 17:04] VITALS: BMI 29.0
[2016-09-24] MEDS: Oxycodone/Acetaminophen 5/325 1 TAB PO PRN ×2 (18:27→22:20)
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
[2016-09-25] MEDS: --POM--LEVOTHYROXINE 75 MCG TABLET PO SCH (07:22)
[2016-09-25] MEDS: Oxycodone/Acetaminophen 5/325 1 TAB PO PRN ×3 (07:36→20:12)
--- NOTE | 2016-09-25 08:51 | CT Scan Report ---
Indication: chest pain post op PROCEDURE: CT angio pulm emboli: Encounter: Initial Comparison: CT chest dated September 11, 2016 Technique: Axial CT pulmonary angiographic phase images were performed through the chest after the administration of intravenous contrast. Coronal and Sagittal MIP reconstructed images were created and reviewed. Automated Exposure Control and Iterative Reconstruction dose reducing techniques were utilized. Contrast: Omnipaque 350 62 mL Findings: Pulmonary arteries: Exam is diagnostic to the subsegmental pulmonary arterial level. No filling defects identified to suggest a pulmonary embolus. Other findings: Stable small pulmonary nodules described on the recent comparison study. Bibasilar atelectasis without focal pneumonia. Trace pleural effusions. No pneumothorax. The central airways are patent. No axillary or mediastinal adenopathy. Ruptured right breast implant. Upper abdomen shows no acute findings. Impression: No pulmonary embolus. Basilar atelectasis and trace effusions. There is a preliminary report by virtual radi[facility]. .
--- NOTE | 2016-09-25 08:53 | XRay Report ---
INDICATION: SOA PROCEDURE: CHEST 2-VIEWS UPRIGHT (PA & LAT) Encounter: Initial COMPARISON: September 11, [address] angiogram of the chest dated September 25, 2016 FINDINGS: The posterior basilar atelectasis and trace effusions, better seen on the comparison CT. Upper lung valles are clear. No pneumothorax. The heart size, mediastinal contours and pulmonary vascularity are within normal limits. IMPRESSION: Basilar atelectasis and trace effusions. There is a preliminary report by [facility] radi[facility]. .
[2016-09-25] MEDS: ROPINIROLE 0.5 MG PO SCH (09:17)
[2016-09-25] MEDS: HYDROXYZINE 25 MG PO SCH ×2 (09:19→21:26)
[2016-09-25] MEDS: VILAZODONE 40 MG PO SCH (09:20)
[~2016-09-25 10:50] MED LIST changes: +ALBUTEROL 2.5mg/3ml (0.083%) NEB AEROSOL PRN; -GABA300C PO; -HYDR25TA PO; +IOHEXOL 350mg/ml 75ml INJECTION ONE; -LEVO50TA11 PO; +NITROGLYCERIN 0.4 MG SUBLINGUAL TABLET SL PRN; +NS 100 ML ONE; -OMEP-122 PO; +ONDANSETRON ODT 4 MG TABLET PO PRN; +SALINE FLUSH 10ml SYRINGE ONE; -TRAZ-170 PO; -VILA20TA PO
[2016-09-25] MEDS ORDERED: FUROSEMIDE 20 MG/2 ML INJECTION IVP ONE (14:46)
--- NOTE | 2016-09-25 15:41 | Progress Note ---
DATE: 09/25/2016 The patient was admitted last night by Dr. Mcclellan after being seen in the office. I sat and visited with her for 20 minutes this morning. Her abdomen is feeling better. She has oxygen on at the moment and she just feels short of breath and low in energy. She had a spiral CT during the night which was negative for PE. The hospitalists are consulted then I talked with Dr. Sutton this morning. They are going to more evaluate her respiratory issues and hypoxia. 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 Her hemoglobin is normal. Her white count is normal. Her abdomen is soft and less distended than it was last week when she went home. On further questioning , she reports she hasn't had a bowel movement since last which is five days so we talked about options and we are going to do some Milk of Magnesia to see if that might help with her abdominal discomfort. Her abdominal discomfort by her report is much, much, much less than it was last and most of her issues now revolve about energy and respiratory. I did report to her that her pathology from last week was benign. Questions were answered to her satisfaction. The hospitalist will also see her this morning and consider a pulmonology consult. MIRELA
--- NOTE | 2016-09-25 19:48 | OB/GYN Progress Note ---
SENIOR DIRECTOR INSIGHT Postop Prog Note Free Text - Date Date: 09/25/16 - Progress Note stopped in to see pt care per hospitalists q&a-krb
[2016-09-25] MEDS: IBUPROFEN 800 MG TABLET PO PRN (20:13)
[2016-09-25] MEDS: --POM--OMEPRAZOLE 20 MG CAPSULE PO SCH (20:13)
[2016-09-25] MEDS: --POM--ATORVASTATIN 20 MG TABLET PO SCH (21:25)
[2016-09-25] MEDS: --POM--GABAPENTIN 300 MG CAPSULE PO SCH (21:25)
[2016-09-25] MEDS: TRAZODONE 50 MG PO SCH (21:25)
[2016-09-25] MEDS: ALBUTEROL/IPRATROPIUM 2.5mg-0.5mg/3ml NEB AEROSOL SCH ×2 (21:30)
[2016-09-26] MEDS: Oxycodone/Acetaminophen 5/325 1 TAB PO PRN ×2 (05:12→10:36)
[2016-09-26] MEDS: IBUPROFEN 800 MG TABLET PO PRN ×2 (05:14→13:02)
[2016-09-26] MEDS: --POM--LEVOTHYROXINE 75 MCG TABLET PO SCH (06:52)
[2016-09-26] MEDS: ALBUTEROL/IPRATROPIUM 2.5mg-0.5mg/3ml NEB AEROSOL SCH ×3 (07:43→20:48)
[2016-09-26] MEDS: ROPINIROLE 0.5 MG PO SCH (08:44)
[2016-09-26] MEDS: FUROSEMIDE 40 MG TABLET PO SCH (08:45)
[2016-09-26] MEDS: VILAZODONE 40 MG PO SCH (08:45)
[2016-09-26] MEDS: HYDROXYZINE 25 MG PO SCH ×2 (08:47→21:41)
[2016-09-26] MEDS ORDERED: ACETAMINOPHEN 325 MG TABLET PO PRN (16:03)
--- NOTE | 2016-09-26 16:35 | Progress Note ---
Subjective: Riley reports that she feels gurgling in her chest when she breathes and breathing remains labored today. She is wheezing occasionally but has not had any cough. She denied palpitations or nausea. She feels lightheaded when she walks to the bathroom. She reports some difficulty swallowing intermittently and indicates that she chokes once in a while. She did not specify that this occurs with solids or liquids. Finally the patient complains of ongoing pain in her pelvis "like a hard period" with increased vaginal bleeding today. She additionally complains of some discomfort in her mid and upper back which increases with inspiration and movement. Objective Vital signs: Temperature 97.1 F 09/26/16 15:22 Pulse Rate 75 09/26/16 15:22 Respiratory Rate 18 09/26/16 15:22 Blood Pressure 136/69 09/26/16 15:22 Pulse Oximetry 95 09/26/16 15:22 Oxygen Delivery Method Room Air EXAM General-drowsy, NAD HEENT-sclera anicteric Lungs-respirations are nonlabored with diminished airflow, decreased breath sounds at the bases right > left Cardiac-regular rhythm, S1-S2 Abd-soft, moderately tender diffusely, bowel sounds present Ext-without edema Neuro-moving all extremities well Psych-dull, withdrawn - Height/Weight/BMI: Height 1.63 m Weight 75.6 kg Body Mass Index 29.0 Results - Labs CBC & Chem 7: 09/24/16 17:11 09/26/16 04:45 Labs: Phosphorus 6.0, magnesium 2.2, TSH 4.11 - ABG Interpretation ABG results: 09/24/16 21:25 ABG pH 7.460 H ABG pCO2 42 ABG pO2 62 L ABG HCO3 30 H ABG Total CO2 31.2 H ABG O2 Saturation 93.0 L ABG Base Excess 5.5 H Assessment and Plan (1) Hypoxia Current visit: Yes Status: Acute (2) Shortness of breath Current visit: Yes Status: Acute (3) Post-operative pain Current visit: Yes Status: Acute (4) Hypertension Current visit: Yes Status: Acute (5) GERD (gastroesophageal reflux disease) Current visit: Yes Status: Acute (6) Hypothyroid Problem details: TSH 4.11 09/26/16 Current visit: Yes Status: Acute DVT Prophylaxis: SCD's Resuscitation Status: Full Code Assessment and Plan: A/P: Hypoxia Dyspnea-acute/chronic Weight gain Hypothyroidism GERD Hyperlipidemia Anxiety/depression Possible restless leg syndrome Somnolence, medication induced Patient has weaned off oxygen while awake however required oxygen overnight. With ambulation earlier this afternoon patient's oxygenation remained 92%-96% on room air. Overnight oximetry obtained last night-study initiated on room air but immediately desaturated to 86% which persisted for several minutes after which oxygen resumed at 2 L. Hypoxia persisted with saturation of 88% shortly thereafter and O2 subsequently increased to 3 L with spot O2 check of 91%. In the middle of the night the patient was found with oxygen off and oxygen saturations again in the 80s. Chest x-ray to be obtained-continue diuresis. Patient remains slightly volume overloaded although improved from yesterday. Continues to hypoventilate, often drowsy. Patient reported that Percocet is too strong for her-discontinued and [place] 5 resumed with Tylenol and ibuprofen available as alternatives for pain control. May require nocturnal oxygen at home for at least short period of time and outpatient follow-up. Discussed with Dr. Yen and case management. Discussed with nursing on multiple occasions through the day. Sepsis Assessment - Evaluation Sepsis screening result: No Definite Risk Hospital Course Summary Disclaimer: The visit summary below is not to be considered part of the above Progress Note. 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 CTA negative for PE, 2 small pulmonary nodules-stable and known from the past. Patient describes exertional dyspnea, orthopnea but denies PND. Significant weight gain in the past couple of years. She is clearly hyperventilating at the time of my evaluation due to somnolence after taking 2 Percocet. Patient reports that she cannot tolerate taking 2 pain pills at once and dose subsequently been reduced to Percocet 5 one when necessary. X-rays are compatible with hypoventilation demonstrating atelectasis and there may be a suggestion of volume overload with small effusions and edema in the lower extremities. Recommend discontinuing hydrochlorothiazide and using low-dose Lasix for several days. Increase activity with ambulation 3-4 times daily. 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 Dry cleaning solvents weakly associated with increased risk of pneumonia but been unable to identify any association with long-term lung disease. Would benefit from pulmonary function tests when acute symptoms stabilize. Breathing treatments added. Suspect recent weight gain contributing to chronic symptoms. Check TSH as patient indicates her doses been fluctuating. Titrate oxygen as clinical status permits. 09/26/16 17:15 Patient has weaned off oxygen while awake however required oxygen overnight. With ambulation earlier this afternoon patient's oxygenation remained 92%-96% on room air. Overnight oximetry obtained last night-study initiated on room air but immediately desaturated to 86% which persisted for several minutes after which oxygen resumed at 2 L. Hypoxia persisted with saturation of 88% shortly thereafter and O2 subsequently increased to 3 L with spot O2 check of 91%. In the middle of the night the patient was found with oxygen off and oxygen saturations again in the 80s. Chest x-ray to be obtained-continue diuresis. Patient remains slightly volume overloaded although improved from yesterday. Continues to hypoventilate, often drowsy. Patient reported that Percocet is too strong for her-discontinued and [place] 5 resumed with Tylenol and ibuprofen available as alternatives for pain control. May require nocturnal oxygen at home for at least short period of time and outpatient follow-up.
[2016-09-26] MEDS: HYDROCODONE/APAP 5mg/325mg TABLET PO PRN (20:34)
[2016-09-26] MEDS: --POM--OMEPRAZOLE 20 MG CAPSULE PO SCH (21:41)
[2016-09-26] MEDS: TRAZODONE 50 MG PO SCH (21:42)
[2016-09-26] MEDS: --POM--ATORVASTATIN 20 MG TABLET PO SCH (21:43)
[2016-09-26] MEDS: --POM--GABAPENTIN 300 MG CAPSULE PO SCH (21:43)
[2016-09-27] MEDS: --POM--LEVOTHYROXINE 75 MCG TABLET PO SCH (06:07)
[2016-09-27] MEDS: ALBUTEROL/IPRATROPIUM 2.5mg-0.5mg/3ml NEB AEROSOL SCH ×2 (07:13→13:37)
--- NOTE | 2016-09-27 07:59 | XRay Report ---
INDICATION: hypoxia, dyspnea PROCEDURE: CHEST 2-VIEWS UPRIGHT (PA & LAT) Encounter: Initial COMPARISON: September 24, 2016 FINDINGS: Improved aeration of the lung bases with near resolution of the prior pleural effusions. Upper lung valles are clear. No pneumothorax. Heart size and mediastinal contours are stable. Pulmonary vascularity is normal. Impression: Resolving basilar atelectasis with decreased pleural fluid. .
[2016-09-27] MEDS: FUROSEMIDE 40 MG TABLET PO SCH (08:05)
[2016-09-27] MEDS: HYDROXYZINE 25 MG PO SCH ×2 (08:05→20:19)
[2016-09-27] MEDS: ROPINIROLE 0.5 MG PO SCH (08:06)
[2016-09-27] MEDS: VILAZODONE 40 MG PO SCH (08:06)
--- NOTE | 2016-09-27 09:54 | Progress Note ---
DATE: 09/26/2016 LATE ENTRY NOTE The patient was seen on 09/26/2016 at approximately 5:00 p.m. She was looking much better at that time. Her O2 sats were still being followed closely. She was off of oxygen. Her daughter and another family member were in the room. I again reviewed her pathology reports and the fact that that was a polyp and negative for cancer or precancer with her and her daughter. I also talked about the fact that the fluid in her abdomen had decreased according to the scans and she was negative for PE and she has been afebrile and negative abdominal CT scans. She is still having some spotting and bleeding which would be normal one week after an operative hysteroscopy. So overall I think from a uterus/gynecologic standpoint she is doing fine now. The hospitalists are following along her respiratory status and her other issues. I am essentially turning her care back to them as this is out of my usual purview. The patient has a follow up visit scheduled for our office today but clearly she doesn't need to do that as I reviewed the pathology with her here and there is no exam needed at this time. Questions were answered to her and her daughter's satisfaction. MIRELA
[2016-09-27] MEDS: IBUPROFEN 800 MG TABLET PO PRN (10:00)
--- NOTE | 2016-09-27 12:13 | Progress Note ---
Subjective: The patient is much more alert than yesterday per report. She states the percocet was causing her problems. She complains of continued abdominal pain which worsened after she strained to have a hard bowel movement this morning. She also complains of pain in her left shoulder blade that has been present since surgery last week. She states she feels dizzy when she stands up. She also states that her skin has become very tanned which is not normal for her and she is not been out in the sun much this summer. She states she is even tandem areas where she does not have sun exposure. She also complains of mild shortness of breath that is been present since surgery and feeling more fatigued today. She further complains of hoarse voice which has been present for 6 months and at productive cough that started last night. She states she has had chronic difficulties with urination. Objective Vital signs: Temperature 95.6 F L 09/27/16 07:59 Pulse Rate 86 09/27/16 10:11 Respiratory Rate 18 09/27/16 07:59 Blood Pressure 103/69 09/27/16 10:11 Pulse Oximetry 91 09/27/16 08:26 Oxygen Delivery Method Room Air Oxygen Flow Rate 1 Height/Weight/BMI: Height 1.63 m Weight 75.4 kg Body Mass Index 29.0 Comments: Orthostatic blood pressure and pulse Lying 114/65 pulse of 68 Sitting 121/69 pulse of 77 Standing 103/69, pulse of 86 She is -1.4 L yesterday and -1.3 L the day prior. Weight is 75.4 kg which is down 0.8 kg GEN-alert, oriented, no acute distress HEENT-sclera anicteric, pupils are equal, oropharynx is moist NECK-supple CV-regular rate and rhythm without murmur CHEST-clear to auscultation bilaterally ABD-soft, mildly distended, normal bowel sounds, mild tenderness throughout -no Junior EXT-no edema NEURO-no focal deficits SKIN-skin is tanned, warm and dry Results - Labs CBC & Chem 7: 09/24/16 17:11 09/27/16 04:19 Labs: BNP 49 TSH 4.11 BUN increased from 16 on admission to 29 yesterday and 30 today - ABG Interpretation ABG results: 09/24/16 21:25 ABG pH 7.460 H ABG pCO2 42 ABG pO2 62 L ABG HCO3 30 H ABG Total CO2 31.2 H ABG O2 Saturation 93.0 L ABG Base Excess 5.5 H Assessment and Plan (1) Post-operative pain Current visit: Yes Status: Acute 09/25/16 00:29 per surgery, see their most excellent h and p (2) Shortness of breath Current visit: Yes Status: Acute 09/25/16 00:25 multiple thoughts to consider. DDX: mild copd not previous diagnosed, PE, CHF , obstructive sleep apnea, will start albuterol prn, order PFT in am. (hopeful to get routine if possible with more formal after discharge), nocturnal oximetry. the question of PE does exist. post op. patient is mild hypoxic with no tachypnia. no chest pain. patient has a chronic component of dyspnea and as such will not pursue PE workup at this time. Will further assess after initial assessment is complete. Consider echocardiogram if pulmonary workup is unrevealing. (3) Hypertension Current visit: Yes Status: Acute 09/25/16 00:28 patient is currently on HCTZ for blood pressure control. Will monitor while in the hospital and adjust as indicated. If necessary an HARDY or ARB can be added. (4) GERD (gastroesophageal reflux disease) Current visit: Yes Status: Acute 09/25/16 00:30 continue PPI (5) Hypothyroid Problem details: TSH 4.11 09/26/16 Current visit: Yes Status: Acute 09/25/16 00:30 patient on synthroid. with history of fatigue and weight gain will confirm if TSH has been done recently , if not consider TSH reflex free T4 (6) Hypoxia Current visit: Yes Status: Acute DVT Prophylaxis: SCD's Assessment and Plan: Impression Hypoxia-improved during the daytime, patient needs O2 at night at this time Dyspnea-acute/chronic Weight gain-unintentional and for unknown reason weight has gone up drastically over the past year to year and half Tanned skin without significant sun exposure Hypothyroidism-normal TSH on replacement GERD Hyperlipidemia Anxiety/depression Possible restless leg syndrome Somnolence, medication induced-markedly improved off of Percocet Lightheadedness with mild orthostasis Chronic hoarse voice for 6 months-likely needs outpatient follow-up Abdominal pain-most likely postop related Plan The patient requires oxygen at night. We'll discuss with case management. Fluid overload seems to have resolved, orthostasis may be secondary to diuresis. We'll hold further Lasix. Check cortisol level regarding seay skin and orthostasis. Continue Tylenol, ibuprofen and/or [place] if needed for pain. Remain off of Percocet. Consult OT and PT see if the patient is stable for dismissal to home with home health Sepsis Assessment - Evaluation Sepsis screening result: No Definite Risk Hospital Course Summary Disclaimer: The visit summary below is not to be considered part of the above Progress Note. Hospital Course: 09/25/16 Patient evaluated for hypoxia identified several days after OVEN PRESS TENDER surgery. CTA negative for PE, 2 small pulmonary nodules-stable and known from the past. Patient describes exertional dyspnea, orthopnea but denies PND. Significant weight gain in the past couple of years. She is clearly hyperventilating at the time of my evaluation due to somnolence after taking 2 Percocet. Patient reports that she cannot tolerate taking 2 pain pills at once and dose subsequently been reduced to Percocet 5 one when necessary. X-rays are compatible with hypoventilation demonstrating atelectasis and there may be a suggestion of volume overload with small effusions and edema in the lower extremities. Recommend discontinuing hydrochlorothiazide and using low-dose Lasix for several days. Increase activity with ambulation 3-4 times daily. 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 Dry cleaning solvents weakly associated with increased risk of pneumonia but been unable to identify any association with long-term lung disease. Would benefit from pulmonary function tests when acute symptoms stabilize. Breathing treatments added. Suspect recent weight gain contributing to chronic symptoms. Check TSH as patient indicates her doses been fluctuating. Titrate oxygen as clinical status permits. 09/26/16 17:15 Patient has weaned off oxygen while awake however required oxygen overnight. With ambulation earlier this afternoon patient's oxygenation remained 92%-96% on room air. Overnight oximetry obtained last night-study initiated on room air but immediately desaturated to 86% which persisted for several minutes after which oxygen resumed at 2 L. Hypoxia persisted with saturation of 88% shortly thereafter and O2 subsequently increased to 3 L with spot O2 check of 91%. In the middle of the night the patient was found with oxygen off and oxygen saturations again in the 80s. Chest x-ray to be obtained-continue diuresis. Patient remains slightly volume overloaded although improved from yesterday. Continues to hypoventilate, often drowsy. Patient reported that Percocet is too strong for her-discontinued and [place] 5 resumed with Tylenol and ibuprofen available as alternatives for pain control. May require nocturnal oxygen at home for at least short period of time and outpatient follow-up.
[2016-09-27] MEDS: HYDROCODONE/APAP 5mg/325mg TABLET PO PRN ×2 (12:59→20:13)
[2016-09-27] MEDS: --POM--OMEPRAZOLE 20 MG CAPSULE PO SCH (20:14)
[2016-09-27] MEDS: TRAZODONE 50 MG PO SCH (20:20)
[2016-09-27] MEDS: --POM--ATORVASTATIN 20 MG TABLET PO SCH (20:20)
[2016-09-27] MEDS: --POM--GABAPENTIN 300 MG CAPSULE PO SCH (20:21)
[2016-09-28] MEDS: --POM--LEVOTHYROXINE 75 MCG TABLET PO SCH (06:23)
[2016-09-28 08:39] VITALS: RESP 16
[2016-09-28] MEDS: VILAZODONE 40 MG PO SCH (08:55)
[2016-09-28] MEDS: ROPINIROLE 0.5 MG PO SCH (08:55)
[2016-09-28] MEDS: HYDROXYZINE 25 MG PO SCH (08:57)
[2016-09-28 11:18] VITALS: BP 125/75; PULSE 71; TEMP 97.6; O2SAT 92
--- NOTE | 2016-09-28 12:22 | Discharge Summary ---
Discharge Information Date of admission: 09/25/16 10:50 Attending Physician: Luis Yen MD Primary care physician: Suraj Bhakta, Consults: 09/24/16 17:15 Dietary Consult [CONS] Routine Comment: Reason For Exam: 09/24/16 20:45 Physician [Physician Consult] [CONS] Routine Consulting Provider: Arsenio Carroll Reason For Exam: SOB, HTN Ordering Provider has Notified Golf Ball Cover Treater: Yes - Discharge Diagnosis Discharge Diagnosis: Acute hypoxic respiratory failure-resolved Nocturnal hypoxemia-resolved Excessive Weight gain-uncertain cause Hypothyroidism Tanned skin-without significant sun exposure Anxiety Somnolence-medication induced Lightheadedness-resolved Chronic coarse voice for 6 months-may need workup as an outpatient Abdominal pain postoperatively-improving Small pulmonary nodules seen on CTA - Procedures Procedures: None - Laboratory Labs: 09/24/16 17:11 09/28/16 08:37 ABG on admission with pH 7.46, PCO2 42, PO2 62 on room air BNP normal at 49 TSH normal at 4.11 A.m. cortisol is pending BUN on admission is 16 with creatinine of 1. BUN on discharge is 30 with creatinine of 1 Liver enzymes on admission were normal - Radiology Radiology: Chest x-ray on admission showed basilar atelectasis and trace effusions CTA chest on admission showed no pulmonary embolus. Basilar atelectasis and trace effusions. Stable small pulmonary nodules described on the recent comparison study. Chest x-ray 816 revealed resolving basilar atelectasis with decreased pleural fluid History of Present Illness HPI: Dr [place] This is a pleasant 66 y/o female that appears slightly older than her stated age that presented to the office this afternoon 5 days post operative from a hysteroscopy, D&C, Polypectomy. She reports a worsening condition over the weekend. She initially had the procedure for postmenopausal thickened endometrium. Per the operative report there was concern for uterine perforation. She was observed overnight with an pelvic abdominal sono at that time that showed free fluid. She improved clinically and was discharged home. On Saturday she reported to the ED where she had an EKG(negative) and CT ABD/ Pelvis that was C/W gastroenteritis. At the hospital today she c/o of abdominal pain that starts from the LLQ and radiates through the URQ and wraps around her back. She reports this pain is a 5/10 and she has some modest bilateral shoulder pain along with shortness of breath. she states the SOB has been for about the last 2 years but is significantly increased since her surgery. She denies fever or chills, nausea or vomiting, she reports alternating diarrhea and constipation that is consistent for her for the last several years. She reports tolerating her PO diet, BM as described above, some difficulty initiating urine stream but denies urgency, frequency or dysuria. States she voids about [address] Sutton. This is a 66 year old female who underwent a gynecological procedure ( hysteroscopy, d and c, uterine polyp removal) on 09/19. Please see the very excellent H&P provided for this admission for further details. This past Saturday the patient presented to the ED for further evaluation of abdomen pain and had a repeat CT of her abdomen that demonstrated enteritis without evidence of perforation. Oxygen saturations were unremarkable at that time other than single room air sat of 88%. The patient was discharged home. The patient was reevaluated yesterday with continued abdomen pain was to admitted to monitor the post operative abdomen pain. Patient described dyspnea on admission and was noted to have mild hypoxia which is new. The patient reports that she has been experiencing shortness of breath over the past 6 months to a year with an associated weight gain of 20 pounds in the past 6 months and 50 pounds over the past 3 years. She describes episodic wheezing and decreased exercise tolerance. She is developed 2-3 pillow orthopnea but denies PND. Ankle edema has developed since surgery. She denies cough but reports episodic fevers, chills, and sweats "depending on the day" she has occasional episodes of pleuritic chest pain which she describes as a "pinching sensation in her back". She had a negative heart cath 05/28 with ejection fraction 65%. The patient does not report that she snores. While being assessed during admission there were concerns regarding her blood pressure control. From a medicine perspective the questions to be addressed is are there associated other medical problems causing her dyspnea. Past CT imaging of her lungs has demonstrated 2 small pulmonary nodules which are reported to be stable compared to prior imaging, both less than 1 cm in size. Objective Vital signs: Temperature 97.6 F 09/28/16 11:17 Pulse Rate 71 09/28/16 11:17 Respiratory Rate 16 09/28/16 08:40 Blood Pressure 125/75 09/28/16 11:17 Pulse Oximetry 92 09/28/16 11:17 Oxygen Delivery Method Room Air Oxygen Flow Rate 1 Height/Weight/BMI: Height 1.63 m Weight 76.9 kg Body Mass Index 29.0 Hospital Course This is a general summary of the patient's hospital course. For more details refer to the complete medical record. Hospital course: Patient was admitted with hypoxia and acute on chronic dyspnea. She was having symptoms of volume overload with edema in the lower extremities, orthopnea, and pleural effusion on chest x-ray. Her hydrochlorothiazide was held and she was started on Lasix. BNP was normal. She was able to be weaned off of oxygen during the day but an overnight oximetry did show significant desaturation. A follow-up overnight oximetry on the evening of 09/27/2016 showed minimal desaturation with only 2 minutes of time less than 89%. At this point she does not need supplemental oxygen at night. Ambulatory oximetry was normal. She was started on breathing treatments, but these caused tremulousness and anxiety. She is requiring a walker for ambulation. She was offered home health but refused. She reports a 50 pound weight gain over the past year to year and a half. She also reports that her skin is very tanned even though she has not had some exposure. I did check a cortisol level on the morning of 09/28/2016 and this is pending and will need to be followed up as an outpatient. The patient's TSH was normal. She did have excessive somnolence which is likely secondary to Percocet that she was given for abdominal pain. She was switched to [place] and does not have somnolence with this. Abdominal pain was thought to be secondary to recent uterine surgery. Abdominal pain is improving. She is eating and drinking well. Dr. Yen has seen the patient here in the hospital postoperatively and no further follow-up with him as needed at this time. Her biopsies were benign. The patient did have some symptoms of orthostasis on the day prior to discharge but this has resolved on the day of discharge. She does report a hoarse voice which she has had for about 6 months and she likely needs outpatient follow-up regarding this. At discharge she is alert and oriented 3 and in no acute distress. Chest clear to auscultation. Cardiac vascular reveals a regular rate and rhythm. Abdomen is soft with positive bowel sounds. On 09/28/2016 was felt that the patient was stable for dismissal to home. Recommend follow-up next week with Dr. Bear. She is to use a walker with ambulation. She will need follow-up on her cortisol level. She cannot drive while taking [place]. Discharge Plan - Med Rec/Dispo [place] Instructions: Dyspnea (GEN) Prescriptions: No Action Nitroglycerin 0.4 mg SL PRN PRN #0 tab PRN Reason: CHEST TIGHTNESS Atorvastatin Calcium 20 mg PO DAILY #30 Levothyroxine Sodium 75 mcg PO DAILY hydroCHLOROthiazide [Hydrochlorothiazide] 25 mg PO DAILY #0 Gabapentin [Neurontin] 300 mg PO HS #0 Trazodone HCl 50 - 100 mg PO HS #0 Vilazodone HCl [Viibryd] 20 mg PO DAILY #0 Omeprazole 1 tab PO PM #0 tab Ibuprofen [Motrin] 400 - 600 mg PO Q6H PRN tablet PRN Reason: Pain hydrOXYzine HCl [Hydroxyzine HCl] 10 mg PO BID Hydrocodone/APAP 5/325 [[place] 5/325] 1 tab PO Q6H PRN #12 tab PRN Reason: Pain Ondansetron [Zofran Odt] 1 tab PO Q6HR PRN #10 tab PRN Reason: Nausea ropinirole 0.5 mg tablet 0.5 mg PO DAILY #30 tab
--- NOTE | 2016-09-28 12:39 | Discharge Instructions ---
Discharge Plan - Med Rec/Dispo Referrals/Follow Up: Suraj Bhakta DO [Primary Care Provider] - [place] Instructions: Dyspnea (GEN) Additional Instructions: Follow-up next week with Dr. Bhakta Prescriptions: New Acetaminophen [Tylenol] 650 mg PO QID PRN tablet PRN Reason: Discomfort Trazodone [Desyrel] 50 mg PO HS #30 tablet Continue Nitroglycerin 0.4 mg SL PRN PRN #0 tab PRN Reason: CHEST TIGHTNESS Atorvastatin Calcium 20 mg PO DAILY #30 Levothyroxine Sodium 75 mcg PO DAILY hydroCHLOROthiazide [Hydrochlorothiazide] 25 mg PO DAILY #0 Gabapentin [Neurontin] 300 mg PO HS #0 Vilazodone HCl [Viibryd] 20 mg PO DAILY #0 Omeprazole 1 tab PO PM #0 tab Ibuprofen [Motrin] 400 - 600 mg PO Q6H PRN tablet PRN Reason: Pain hydrOXYzine HCl [Hydroxyzine HCl] 10 mg PO BID Hydrocodone/APAP 5/325 [[place] 5/325] 1 tab PO Q6H PRN #12 tab PRN Reason: Pain Ondansetron [Zofran Odt] 1 tab PO Q6HR PRN #10 tab PRN Reason: Nausea ropinirole 0.5 mg tablet 0.5 mg PO DAILY #30 tab Discontinued Trazodone HCl 50 - 100 mg PO HS #0 Discharge Instructions/Outpatient Orders: Final Provider Discharge Instructions Location: Determined By Patient - Disposition 01 Discharged Home, Self-Care
== END 2016-09-28 14:43 | disposition home or self-care (01) | DRG 189 ==
LOC: SRG
PROVIDERS: ADMIT Obstetrics & Gynecology; ATTEND Obstetrics & Gynecology